=== PATIENT | female | born 1995 | race Caucasian/White ===

== ENCOUNTER 2025-08-23 13:19 | Outpatient (AMB) | payer OTHER, SELFPAY ==
--- OUTSIDE RECORDS SUMMARY | 2025-08-18 06:45 | XMS_ITS ---
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 Performing Lab:Eli Kelly, [facility], Phone - [phone], Director - Dwight Notes/Report: Protein, Total 7.4 6.0-8.5 g/dL Albumin 4.5 4.0-5.0 g/dL Bilirubin, Total <0.2 0.0-1.2 mg/dL Bilirubin, Direct <0.08 0.00-0.40 mg/dL Alkaline Phosphatase 48 41-116 IU/L P lease note reference interval change AST (SGOT) 20 0-40 IU/L ALT (SGPT) 10 0-32 IU/L HCV Antibody RFX to Quant PC [id number] Reviewed date:08/23/2025 12:19:27 PM Interpretation:RNA not DETECTED Performing Lab:Eli Dominguez, Charisse Medley, [address] [place] [address], Phone - [phone], Director - Sharita Notes/Report: HCV Ab Reactive Non Reactive A Hepatitis C Quantitation HCV Not Detected Test Information: The juli ntitative range of this assay is 15 IU/mL to 100 million IU/mL. Interpretation: Positive HCV antibody screen without the presence of HCV RNA is consistent with a resolved past infection or a false positive HCV antibody. Consider repeat testing after one month. CBC With Differential/Platel [id number] Reviewed date:08/19/2025 09:05:43 AM Interpretation:Normal Performing [facility], [address] [place] [address], Phone - [phone], Director - Dwight Notes/Report: WBC 8.8 3.4-10.8 x10E3/uL RBC 4.09 3.77-5.28 x10E6/uL Hemoglobin 12.3 11.1-15.9 g/dL Hematocrit 37.2 34.0-46.6 % MCV 91 79-97 fL MCH 30.1 26.6-33.0 pg MCHC 33.1 31.5-35.7 g/dL RDW 12.9 11.7-15.4 % Platelets 368 150-450 x10E3/uL Neutrophils 58 Not Estab. % Lymphs 34 Not Estab. % Monocytes 6 Not Estab. % Eos 1 Not Estab. % Basos 1 Not Estab. % Neutrophils (Absolute) 5.1 1.4-7.0 x10E3/uL Lymphs (Absolute) 3.0 0.7-3.1 x10E3/uL Monocytes(Absolute) 0.5 0.1-0.9 x10E3/uL Eos (Absolute) 0.1 0.0-0.4 x10E3/uL Baso (Absolute) 0.1 0.0-0.2 x10E3/uL Immature Granulocytes 0 Not Estab. % Immature Grans (Abs) 0.0 0.0-0.1 x10E3/uL Hemoglobin [id number] Reviewed date:08/19/2025 09:05:43 AM Interpretation:5% Normal Performing Lab:[facility], [address] [place] [address], [place], Phone - [phone], Director - Dwight Notes/Report: Hemoglobin A1c 5.0 4.8-5.6 % . Prediabetes: 5.7 - 6.4 Diabetes: >6.4 Glycemic control for adults with diabetes: <7.0 Creatinine-[id number] Reviewed date:08/19/2025 09:05:43 AM Interpretation:Cr 0.7 Normal Performing Lab:[facility], [address], [place], Phone - [phone], Director - Dwight Notes/Report: Creatinine 0.70 0.57-1.00 mg/dL eGFR 119 >59 mL/min/1.73 REASON FOR VISIT Hep C F/U, [facility] labs Medications Medication SIG (Take, Route, Frequency, Duration) Notes Start Date End Date Status Epclusa 400-100 MG Tablet 1 tablet Orally Once a day; Duration: 30 days Request refill prior to running out of supply Insurance would cover 1 month through [facility] pharmacy, needs to have RX transferred, has completed 1 month of medication and needs 2 additional months. Call with questions. 07/15/2025 Active BD Syringe Luer-Wilbert 1 ML Miscellaneous as directed Subcutaneous Once weekly; Duration: 90 days 07/30/2025 Active Alcohol Pads 70 % Pad as directed transdermal cleanse area prior to injections once weekly; Duration: 90 07/30/2025 Active Needle (Disp) 23G X 1-1/2 Miscellaneous as directed IM Once weeky; Duration: 90 days 07/30/2025 Active BD Disp Giltner 19G X 1 Miscellaneous as directed for drawing up medication once weekly; Duration: 90 days 07/30/2025 Active Mirtazapine Active Latuda Active Gabapentin Active cloNIDine Active Testosterone Cypionate 200 MG/ML Solution 0.3 mL Intramuscular 60 mg once weekly; Duration: 28 days 07/30/2025 Active Social History Sex Assigned At : Social History Observation Description Sex Assigned At Female Social History HIV Risk Assessment Social Info Question Answer Notes Additional Questions Is an HIV Risk Assessment being c onducted? Yes Have you been tested for HIV before? Yes Reproductive Life Plan: Social Info Question Answer Notes Reproductive Life Plan: Do you want to h ave children? No, I don't want to have children How sure are you that you will be able to use your control method without any problems? Sure People's plans change. Is it possible you or your partner could ever decide to become ? No Human Trafficking: Social Info Question Answer Notes Human Trafficking Experienced: No PrEP for HIV: Social Info Question Answer Notes PrEP for HIV Is the client intere sted in beginning/continuing PrEP for HIV? No Sexual History: Social Info Question Answer Notes Sexual History: Sexual History Reviewed: Partner s, Practices, Protection/Past STIs, Prevention of Currently sexually active? Yes Sexually active with: Women Your sexual activities include: oral intercourse, vaginal intercourse Reviewed types of EC? No Do you use condoms? Yes Condoms are used: always Date of last unprotected intercourse: 08/14/2025 Number of partners in past 3 months: 1 Number of partners in past year: 1 What is the client's primary method to prevent at the end of their visit? Condoms - Female Does your partner(s) currently have any STIs? No Counseling Provided: Social Info Question Answer Notes Counseling Provided Please indicate the length of time, in minutes, that counseling was provided. 10 Counseling Was Provided By: kezia Drugs/Alcohol: Social Info Question Answer Notes Drug/Alcohol Use Do you or have you used drugs? Yes, i n the past When did you last use? When you used, by which route did you take drugs? Injecting Which drug(s) did you inject? Other (specify in notes) fentanyl Did you share equipment? Yes Have you been tested for Hepatitis C before? Yes Are you in a treatment program? Yes Type of program: Detox Do you or have you used alcohol? No Food Access: Social Info Question Answer Notes Food Access The Client's current access to food is Secure Food Access Relationships: Social Info Question Answer Notes Relationships Has the client exper ienced any of the following: Reproductive Coercion, Harmful Relationships, Sexual Coercion, Exchanged Sex for. . . Emotionally Yes Clt has a therapist Currently: No Physically: Yes Currently: No Sexually: Yes Currently No Been forced or pressured into sexual activities? Yes Currently: No drugs, senior living, safety, other. No Gender Affirming Hormone Car e Social Info Question Answer Notes Gender Affirming Hormone Care: How do yo u describe your gender identity? Select all that apply Man How would you prefer to talk about or refer to your body? (Describe in notes.) medical terminology is ok ay What experience do you have with gender affirming care, if any? Provider prescribed hormones, Social transition clt has been on HRT since the age of 23, has received inconsistent HRT care throughout the years due to substance abuse and being in recovery programs while in transition What are your goals with seeking gender affirming care? Hormonal transition (describe in notes), Gender affirming surgery (describe in notes) gender affirming surgeries and HRT continuation While hormonal treatment is not contraception, it can have an impact on fertility. Is this something you would like to plan for? No Housing Social Info Question Answer Notes Housing The client's current living situation is: other (see notes) currently staying at a group home program Tobacco Use: Social Info Question Answer Notes Tobacco Use: Do you/have you used tobacco? Yes, currently cigarette use How long have you been smoking (years)? 17 How many cigarettes do you smoke per day? 0 - 10 Tobacco Smoking Status Current every day smoker Vital Signs Blood pressure systolic 112 mm Hg 08/18/20 25 Blood pressure diastolic 76 mm Hg 025 Height 5'4 in 08/18/2025 Weight 195 lbs 08/18/2025 BMI 33.47 kg/m2 08/18/2025 Encounters Encounter Location Date Provider Diagnosis [facility] [address] [place], [place] [phone] 08/18/2025 MARIA ANTONIA TEMPLETON Counseling, unspec ified Z71.9 ; Unspecified viral hepatitis C without hepatic coma B19.20 ; Hormone replacement therapy Z79.890 ; Encounter for screening for diabetes mellitus Z13.1 and Other lobsterman (current) drug therapy Z79.899 Assessments Encounter Date Diagnosis (ICD Code) Assessment Notes Treatment Notes Treatment Clinical Notes Section Notes 08/18/2025 Counseling, unspecified (ICD-10 - Z71.9) Need 2 out of 3 Sections from A-C Section A) Problems (only need one from below) One acute or uncomplicated illness/injury Section B) Data (at least one of the following categories in this section) Category 1: (Choose 2 of the following): Order unique tests Section C) Risk Document low risk of morbidity/mortal ity 08/18/2025 Unspecified viral hepatitis C without hepatic coma (ICD-10 - B19.20) Restart medication as soon as it arrives to ensure continuity of therapy. Perform laboratory tests today for Hep C fu. Plan for fu visit once medication is completed in 8-10 wks. Advised to call the pharmacy prior to needing the next refill. Call with issues. Need 2 out of 3 Sections from A-C Section A) Problems (only need one from below) One acute or uncomplicated illness/injury Section B) Data (at least one of the following categories in this section) Category 1: (Choose 2 of the following): Order unique tests Section C) Risk Document low risk of morbidity/mortal ity 08/18/2025 Hormone replacement therapy (ICD-10 - Z79.890) Need 2 out of 3 Sections from A-C Section A) Problems (only need one from below) One acute or uncomplicated illness/injury Section B) Data (at least one of the following categories in this section) Category 1: (Choose 2 of the following): Order unique tests Section C) Risk Document low risk of morbidity/mortal ity 08/18/2025 Encounter for screening for diabetes mellitus (ICD-10 - Z13.1) Need 2 out of 3 Sections from A-C Section A) Problems (only need one from below) One acute or uncomplicated illness/injury Section B) Data (at least one of the following categories in this section) Category 1: (Choose 2 of the following): Order unique tests Section C) Risk Document low risk of morbidity/mortal ity 08/18/2025 Other lobsterman (current) drug therapy (ICD-10 - Z79.899) Need 2 out of 3 Sections from A-C Section A) Problems (only need one from below) One acute or uncomplicated illness/injury Section B) Data (at least one of the following categories in this section) Category 1: (Choose 2 of the following): Order unique tests Section C) Risk Document low risk of morbidity/mortal ity Plan Of Treatment Treatment Notes Assessment Notes Unspecified viral hepatitis C without hepatic coma Restart medication as soon as it arrives to ensure continuity of therapy. Perform laboratory tests today for Hep C fu. Plan for fu visit once medication is completed in 8-10 wks. Advised to call the pharmacy prior to needing the next refill. Call with issues. Next Appt Details Follow Up: 2 Months, Reason: Hep C fu Provider Name:MARIA ANTONIA TEMPLETON, 10:45:00 AM, [address] [place] [address], [phone], Provider Name:MARIA ANTONIA TEMPLETON, 09:30:00 AM, [address] [place] [address], [phone], Provider Name:MARIA ANTONIA TEMPLETON, 09:00:00 AM, [address] [place] [address], [phone], History and Physical Notes * HPI (History of Present Illness) Category Sub-Category Detail Notes Category Not es Visit Narrative Reason for the visit: follow up Current form of control: condoms Presenting Symptoms: none LMP: 07/20 Last date of UPI: 08/14 Other notes for the Clinician: Hasn't be en on their medication since 08/16 Examination Category Sub-Category Detail Notes Category Not es General Examination GENERAL APPEARANCE: pleasant, in n o acute distress PSYCH: alert, oriented Progress Notes * Sigrid CROUCH NDOB: [birth year] (30 yo F)Acc No.[id number]:08/18/2025 Progress Notes Patient: Sigrid Becerril N Provider: Wilfrido TEMPLETON :1995 A ge:30 Y S ex:Female(T) Date:08/18/2025 Address:[address] [place], [place] [id number] Subjective: * Chief Complaints: * H ep C F/UGAH labs * HPI: V isit Narrative: Started on Epclusa treatment last month. Issues with refill with the pharmacy. Ad reported being out of medication since Saturday and expressed frustration regarding delays in obtaining a refill due to insurance issues. He stated that the medication should arrive tomorrow. No other symptoms, concerns, or changes in health status were reported prior to the encounter. Needs [facility] initial labs as well. Reason for the visit: f ollow up. Current form of control: c ondoms. Presenting Symptoms: n one. LMP: 0 07/20. Last date of UPI: 08/14. Other notes for the Clinician: H asn't been on their medication since 08/16. * ROS: G eneral/Constitutional: Comments H as no complaints. 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 L ast menstrual period: 0 07/20. M enarche: A ge of menarche [age] P eriods: e very month, heavy blood loss. S exual activity: c urrently sexually active, with women. U nprotected sex in the last 5 days?: n o. U nprotected sex in the past 10 days?: n o. * OB History: T otal pregnancies: 0 . * Surgical History: Denies Past Surgical History. Surgical History verified. * Hospitalization/Major Diagno stic Procedure: Denies Past Hospitalization. Hospitalization Verified. * Family History: M other: Heart disease, stroke. F amily History: hypertension. F amily History Verified.. * Social History: F ood Access: F ood Access T he Client's current access to food is S [employer] Food Access G jurgen Affirming Hormone Care: G ujrgen Affirming Hormone Care H ow do you describe your gender identity? Select all that apply M an H ow would you prefer to talk about or refer to your body? ( Describe in notes.) medical terminology is okay W hat experience do you have with gender affirming care, if any? P elver prescribed hormones, Social transition clt has been on HRT since the age of 23, has received inconsistent HRT care throughout the years due to substance abuse and being in recovery programs while in transition W hat are your goals with seeking gender affirming care? H ormonal transition (describe in notes), Gender affirming surgery (describe in notes) gender affirming surgeries and HRT continuation W hile hormonal treatment is not contraception, it can have an impact on fertility. Is this something you would like to plan for? N o H ousing: H ousing T he client's current living situation is:?other (see notes) currently staying at a group home program R eproductive Life Plan: R eproductive Life Plan D o you want to have children? N o, I don't want to have children H ow sure are you that you will be able to use your control method without any problems? S ure P eople's plans change. Is it possible you or your partner could ever decide to become ? N o S exual History: S exual History S exual History Reviewed: P artners, Practices, Protection/Past STIs, Prevention of C urrently sexually active? Y es S exually active with: W ofelia Y our sexual activities include: o ral intercourse, vaginal intercourse R eviewed types of EC? N o D o you use condoms? Y es C ondoms are used: a lways D ate of last unprotected intercourse: 0 08/14/2025 N umber of partners in past 3 months: 1 N umber of partners in past year: 1 W hat is the client's primary method to prevent at the end of their visit? C ondoms - Female D oes your partner(s) currently have any STIs??No H IV Risk Assessment: A dditional Questions I s an HIV Risk Assessment being conducted??Yes H ave you been tested for HIV before? Y es P rEP for HIV: P rEP for HIV I s the client interested in beginning/continuing PrEP for HIV? N o R elationships: R elationships H as the client experienced any of the following: R eproductive Coercion, Harmful Relationships, Sexual Coercion, Exchanged Sex for. . . E motionally Y es Clt has a therapist C urrently: N o P hysically: Y es C urrently: N o S exually: Y es C urrently N o B een forced or pressured into sexual activities? Y es C urrently: N o d rugs, senior living, safety, other. N o H uman Trafficking: H uman Trafficking E xperienced: N o T obacco Use: T obacco Use D o you/have you used tobacco? Y es, currently cigarette use H ow long have you been smoking (years)? 1 7 H ow many cigarettes do you smoke per day??0 - 10 T obacco Smoking Status C urrent every day smoker D rugs/Alcohol: D rug/Alcohol Use D o you or have you used drugs? Y es, in the past W hen did you last use? 0 -2024 W hen you used, by which route did you take drugs? I njecting W hich drug(s) did you inject? O ther (specify in notes) fentanyl D id you share equipment? Y es H ave you been tested for Hepatitis C before??Yes A re you in a treatment program? Y es T ype of program: D etox D o you or have you used alcohol? N o C monae Provided: C ounseling Provided P lease indicate the length of time, in minutes, that counseling was provided. 1 0 C ounseling Was Provided By: ethan Conde ocial History Verified. * Medications: T akingLatuda Mirtazapine cloNIDine Gabapentin Testosterone Cypionate 200 MG/ML Solution 0.3 mL Intramuscular 60 mg once weekly BD Disp Giltner 19G X 1 Miscellaneous as directed for drawing up medication once weekly BD Syringe Luer- Wilbert 1 ML Miscellaneous as directed Subcutaneous Once weekly Needle (Disp) 23G X 1-1/2 Miscellaneous as directed IM Once weeky Alcohol Pads 70 % Pad as directed transdermal cleanse area prior to injections once weekly Epclusa 400-100 MG Tablet 1 tablet Orally Once a day Request refill prior to running out of supply, Notes to Pharmacist: Insurance would cover 1 month through [facility] pharmacy, needs to have RX transferred, has completed 1 month of medication and needs 2 additional months. Call with questions.Medication List reviewed and reconciled with the patientTaking Latuda Taking Mirtazapine Taking cloNIDine Taking Gabapentin Taking Testosterone Cypionate 200 MG/ML Solution 0.3 mL Intramuscular 60 mg once weekly Taking BD Disp Giltner 19G X 1 Miscellaneous as directed for drawing up medication once weekly Taking BD Syringe Luer-Wilbert 1 ML Miscellaneous as directed Subcutaneous Once weekly Taking Needle (Disp) 23G X 1-1/2 Miscellaneous as directed IM Once weeky Taking Alcohol Pads 70 % Pad as directed transdermal cleanse area prior to injections once weekly Taking Epclusa 400-100 MG Tablet 1 tablet Orally Once a day Request refill prior to running out of supply, Notes to Pharmacist: Insurance would cover 1 month through [facility] pharmacy, needs to have RX transferred, has completed 1 month of medication and needs 2 additional months. Call with questions.Medication List reviewed and reconciled with the patient * Allergies: M orphine: hives - AllergyPROzac: Other: homocidal, aggressive - Side EffectsAmoxicillin: hives - AllergyPenicillin: hives - AllergyyesAllergies Verified. Objective: * Vitals: B P:112/76mm Hg, Ht: 5'4 , Wt:195lbs, BMI:33.47Index, Ht-cm: 162.56 cm, Wt-k.45 kg. * Examination: G eneral Examination: GENERAL APPEARANCE: p leasant, in no acute distress. PSYCH: a lert, oriented. Assessment: * Assessment: 1. U nspecified viral hepatitis C without hepatic coma - B19.20 (Primary) 2 .?Counseling, unspecified - Z71.9 3 . H ormone replacement therapy - Z79.890? 4. E ncounter for screening for diabetes mellitus - Z13.1 5 . Other lobsterman (current) drug therapy - Z79.899 Need 2 out of 3 Sections fro m A-C Section A) Problems (only need one from below) One acute or uncomplicated illness/injury Section B) Data (at least one of the following categories in this section) Category 1: (Choose 2 of the following): Order unique tests Section C) Risk Document low risk of morbidity/mortality Plan: * Treatment: Value Reference Range C reatinine 0.70 0.57-1.00 - mg/dL * e GFR 119 >59 - mL/min/1.73 * This lab was reviewed by BEAR GOMEZ on 08/19/2025 at 09:05 AM EDT ?LAB: Hemoglobin [id number] (Collection Date & Time - 08/18/2025 12:08 PM)* Value Reference Range H emoglobin A1c 5.0 4.8-5.6 - % * This lab was reviewed by BEAR GOMEZ on 08/19/2025 at 09:05 AM EDT ?LAB: CBC With Differential/Platelet-[id number] (Collection Date & Time - 08/18/2025 12:08 PM)* Value Reference Range W BC 8.8 3.4-10.8 - x10E3/uL * R BC 4.09 3.77-5.28 - x10E6/uL * H emoglobin 12.3 11.1-15.9 - g/dL * H ematocrit 37.2 34.0-46.6 - % * M CV 91 79-97 - fL * M CH 30.1 26.6-33.0 - pg * M CHC 33.1 31.5-35.7 - g/dL * R DW 12.9 11.7-15.4 - % * P latelets 368 150-450 - x10E3/uL * N eutrophils 58 Not Estab. - % * L ymphs 34 Not Estab. - % * M onocytes 6 Not Estab. - % * E os 1 Not Estab. - % * B asos 1 Not Estab. - % * N eutrophils (Absolute) 5.1 1.4-7.0 - x10E3/uL * L ymphs (Absolute) 3.0 0.7-3.1 - x10E3/uL * M onocytes(Absolute) 0.5 0.1-0.9 - x10E3/uL * E os (Absolute) 0.1 0.0-0.4 - x10E3/uL * B aso (Absolute) 0.1 0.0-0.2 - x10E3/uL * I mmature Granulocytes 0 Not Estab. - % * I mmature Grans (Abs) 0.0 0.0-0.1 - x10E3/uL * This lab was reviewed by BEAR GOMEZ on 08/19/2025 at 09:05 AM EDT ?LAB: HCV Antibody RFX to Quant PCR-[id number] (Collection Date & Time - 08/18/2025 12:08 PM)* Value Reference Range H CV Ab Reactive A Non Reactive - * H epatitis C Quantitation HCV Not Detected - IU/mL * MARIA ANTONIA TEMPLETON 08/23/2025 12:17: 31 PM EDT > Farhat, I'm very pleased to say that your Hep C viral load is undetectable! Keep up with your Hep C treatment until it is fully completed as we don't want the viral load to come back. Call with questionsThis lab was reviewed by MARIA ANTONIA TEMPLETON on 08/23/2025 at 12:19 PM EDT ?LAB: Hepatic Function Panel ([id number] (Collection Date & Time - 08/18/2025 12:08 PM)* Value Reference Range P rotein, Total 7.4 6.0-8.5 - g/dL * A lbumin 4.5 4.0-5.0 - g/dL * B ilirubin, Total <0.2 0.0-1.2 - mg/dL * B ilirubin, Direct <0.08 0.00-0.40 - mg/dL * A lkaline Phosphatase 48 41-116 - IU/L * A ST (SGOT) 20 0-40 - IU/L * A LT (SGPT) 10 0-32 - IU/L * MARIA ANTONIA TEMPLETON 08/23/2025 12:45: 52 PM EDT > your liver function testing has improved into the normal range from baseline since starting Hep C treatment! Keep up with the treatment for the next 8 weeks!This lab was reviewed by MARIA ANTONIA TEMPLETON on 08/23/2025 at 12:46 PM EDT Notes: Restart medication as soon as it arrives to ensure continuity of therapy. Perform laboratorytests today for Hep C fu. Plan for fu visit once medication is completed in 8-10 wks. Advised to call the pharmacy prior to needing the next refill. Call with issues.?? * Follow Up: 2 Months (Reason: Hep C fu) Billing Information: * Visit Code: [id number] Existing - Low Complexity (IN USE). * Procedure Codes: * Sign off status: Completed true * Provider: Wilfrido TEMPLETON Date: 08/18/2025 Generated for John ledbetter/Sherley/Berenice on: 08/23/2025 02:48 PM EDT
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
[2025-08-23 13:32] VITALS: BP 108/53; PULSE 84; RESP 16; TEMP 36.6; O2SAT 98; BMI 32.9
--- OUTSIDE RECORDS SUMMARY | 2025-08-23 14:49 | XMS_ITS | Patient Health Record ---
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 Role Phone MARIA ANTONIA TEMPLETON Unavailable [phone] Sameera Granados Unavailable [phone] Allergies Allergen (clinical drug ingredient) Drug/Non Drug Allergy documented on EMR Reaction Allergy Type Onset Date Status fluoxetine PROzac Other: homocidal , aggressive Drug Allergy Active amoxicillin Amoxicillin hives Drug Allergy Act deven morphine Morphine hives Drug Allergy Active Penicillin hives Drug Allergy Active Results Component Value Reference Range Flag Notes Creatinine-[id number] Reviewed date:06/21/2025 11:26:34 AM Interpretation:Cr 0.53 low Performing Lab:[facility], Phone - [phone], Director - MDJodry Notes/Report: Creatinine 0.53 0.57-1.00 mg/dL L eGFR 128 >59 mL/min/1.73 hCG,Beta Subunit, Qnt-[id number] Reviewed date:06/17/2025 12:18:11 PM Interpretation:Negative Performing Lab:[facility], [address] [facility], [place], Phone - [phone], Director - MDJodry Notes/Report: hCG,Beta Subunit,Qnt,Serum <1 Female (Non-) 0 - 5 (Postmenopausal) 0 - 8 . Female () Weeks of Gestation 3 6 - 71 4 10 - 750 5 127 - 0741 6 845 - 86866 7 6172 -036536 8 61366 -391278 9 69220 -761974 10 26547 -434612 12 82437 -479153 14 32310 - 93531 15 68352 - 03108 16 1363 - 00920 17 3448 - 50519 18 4364 - 19606 Dominick ECLIA methodology CBC With Differential/Platel et-[id number] Reviewed date:06/21/2025 11:26:23 AM Interpretation:Normal Performing Lab:[address], Phone - [phone], [facility] - [facility] Notes/Report: WBC 7.3 3.4-10.8 x10E3/uL RBC 4.30 3.77-5.28 x10E6/uL Hemoglobin 12.5 11.1-15.9 g/dL Hematocrit 38.9 34.0-46.6 % MCV 91 79-97 fL MCH 29.1 26.6-33.0 pg MCHC 32.1 31.5-35.7 g/dL RDW 12.9 11.7-15.4 % Platelets 313 150-450 x10E3/uL Neutrophils 50 Not Estab. % Lymphs 40 Not Estab. % Monocytes 7 Not Estab. % Eos 2 Not Estab. % Basos 1 Not Estab. % Neutrophils (Absolute) 3.7 1.4-7.0 x10E3/uL Lymphs (Absolute) 2.9 0.7-3.1 x10E3/uL Monocytes(Absolute) 0.5 0.1-0.9 x10E3/uL Eos (Absolute) 0.2 0.0-0.4 x10E3/uL Baso (Absolute) 0.1 0.0-0.2 x10E3/uL Immature Granulocytes 0 Not Estab. % Immature Grans (Abs) 0.0 0.0-0.1 x10E3/uL HBsAg Screen-[id number] Reviewed date:06/21/2025 11:13:27 AM Interpretation:Negative Performing Lab:[address], Phone - [phone], Director - [facility] Notes/Report: HBsAg Screen Negative Negative Hepatitis B Surf Ab Quant-00 6530 Reviewed date:06/21/2025 11:26:17 AM Interpretation:Positive Performing Lab:[address], Phone - [phone], Director - [facility] Notes/Report: Hepatitis B Surf Ab Quant 6267.0 Immunity>10 mIU/mL Results confirmed on dilution. Status of Immunity Anti-HBs Level Inconsistent with Immunity 0.0 - 10.0 Consistent with Immunity >10.0 Hep B Core Ab, Tot-[id number] Reviewed date:06/21/2025 11:21:48 AM Interpretation:Positive Performing Lab:[facility], [address] [place] [address], Phone - [phone], Director - Leslye Notes/Report: Hep B Core Ab, Tot Positive Negative A Hep A Ab, Total-[id number] Reviewed date:06/21/2025 11:25:27 AM Interpretation:Positive Performing Lab:[facility], [address] [place] [address], Phone - [phone], Director - [facility] Notes/Report: Hep A Ab, Total Positive Negative A Comment: The HAV total antibody assay detects both IgG and IgM but does not differentiate between them. A negative result suggests susceptibility to infection. A positive result could be due to vaccination, previously resolved infection or active infection. Testing for HAV IgM should be performed if active HAV infection is suspected. [facility] offers profiles that will automatically reflex positive HAV total antibody results to IgM (e.g., panel #[id number] HAV Antibody w/ Rfx). PT and PTT-[id number] Reviewed date:06/21/2025 11:26:01 AM Interpretation:see details Performing Lab:[facility], [address] [place] [address], Phone - [phone], Director - OKDiandra Notes/Report: INR 1.0 0.9-1.2 Reference interval is for non-anticoagulated patients. . Suggested INR therapeutic range for Vitamin K antagonist therapy: Standard Dose (moderate intensity therapeutic range): 2.0 - 3.0 Higher intensity therapeutic range 2.5 - 3.5 Prothrombin Time 10.5 9.1-12.0 sec aPTT 35 24-33 sec H This test has not been validated for monitoring unfractionated heparin therapy. aPTT-based therapeutic ranges for unfractionated heparin therapy have not been established. For general guidelines on Heparin monitoring, refer to the [facility] Directory of Services. T pallidum Screening Colony -[id number] Reviewed date:06/21/2025 11:25:48 AM Interpretation:Negative Performing Lab:[facility] [address], [address], [place], Phone - [phone], Director - [facility] Notes/Report: T pallidum Antibodies Non Reactive Non Reactive HIV Ab/p24 Ag with Reflex-08 3935 Reviewed date:06/21/2025 11:25:38 AM Interpretation:Negative Performing Lab:[facility] [place], [address], [address], [place], Phone - [phone], Director - [facility] Notes/Report: HIV Ab/p24 Ag Screen Non Reactive Non Reactive HIV-1/HIV-2 antibodies and HIV-1 p24 antigen were NOT detected. There is no laboratory evidence of HIV infection. HIV Negative HCV Antibody Colony(PCR/Gen o)-[id number] Reviewed date:06/30/2025 09:13:44 AM Interpretation:Positive, see details Performing Lab:[facility] [place], [address]ley, [address], [place], Phone - [phone], Director - [facility] Notes/Report: Test(s) 962030-Cghtzyhwn C Genotype was developed and its performance characteristics determined by [facility]. It has not been cleared or approved by the Food and Drug Administration. Test(s) 963731-Prdoopnzf C Genotype was developed and its performance characteristics determined by [facility]. It has not been cleared or approved by the Food and Drug Administration. Test(s) 981274-Ytcdwzrrf C Genotype was developed and its performance characteristics determined by [facility]. It has not been cleared or approved by the Food and Drug Administration. HCV Ab Reactive Non Reactive A Hepatitis C Quantitation [id number] HCV log10 5.723 Test Information: The juli ntitative range of this assay is 15 IU/mL to 100 million IU/mL. Interpretation: Positive HCV antibody screen with the presence of HCV RNA is consistent with active infection. HCV Genotype To be perfor med on this specimen. Hepatitis C Genotype 3 Hepatic Function Panel (7)-[id number] Reviewed date:06/21/2025 10:54:05 AM Interpretation:AST/ALT elevated Performing Lab:[facility], [address] [place] [address], [place], Phone - [phone], Director - OKDerik Notes/Report: Protein, Total 7.5 6.0-8.5 g/dL Albumin 4.5 4.0-5.0 g/dL Bilirubin, Total <0.2 0.0-1.2 mg/dL Bilirubin, Direct <0.08 0.00-0.40 mg/dL Alkaline Phosphatase 54 44-121 IU/L AST (SGOT) 80 0-40 IU/L H ALT (SGPT) 105 0-32 IU/L H HCV FibroSure-[id number] Reviewed date:06/21/2025 10:52:27 AM Interpretation:No Fibrosis Performing Lab:[facility] [place], [facility] [address], [place], Phone - [phone], Director - Kasey Notes/Report: Fibrosis Score 0.06 0.00-0.21 Fibrosis Stage F0 - No fi brosis Necroinflammat Activity Score 0.58 0.00-0.17 H Necroinflammat Activity Grade A2-Moderate activity Methodology: The analytes tested are performed by FibroSure-Specific methods. Not intended for use with other diagnostic considerations. Alpha 2-Macroglobulins, Qn 304 110-276 mg/dL H Haptoglobin 154 33-278 mg/dL Apolipoprotein A-1 156 116-209 mg/dL Bilirubin, Total 0.1 0.0-1.2 mg/dL GGT 28 0-60 IU/L ALT (SGPT) P5P 127 0-40 IU/L H Interpretations: Quantitative results of 6 biochemical tests are analyzed using a computational algorithm to provide a quantitative surrogate marker (0.0-1.0) for liver fibrosis (METAVIR F0-F4) and for necroinflammatory activity (METAVIR A0-A3). Fibrosis Scoring: <=0.21 = Stage F0 - No fibrosis 0.21 - 0.27 = Stage F0 - F1 0.27 - 0.31 = Stage F1 - Portal fibrosis 0.31 - 0.48 = Stage F1 - F2 0.48 - 0.58 = Stage F2 - Bridging fibrosis with few septa 0.58 - 0.72 = Stage F3 - Bridging fibrosis with many septa 0.72 - 0.74 = Stage F3 - F4 >0.74 = Stage F4 - Cirrhosis Necroinflamm Activity Scoring: <0.17 = Grade A0 - No Activity 0.17 - 0.29 = Grade A0 - A1 0.29 - 0.36 = Grade A1 - Minimal activity 0.36 - 0.52 = Grade A1 - A2 0.52 - 0.60 = Grade A2 - Moderate activity 0.60 - 0.62 = Grade A2 - A3 >0.62 = Grade A3 - Severe activity Limitations: The negative predictive value of a Fibrotest score <0.31 (absence of clinically significant fibrosis) was 85% when compared to liver biopsy in 1,270 HCV infected patients with a 38% prevalence of significant liver fibrosis (F2, 3 or 4). The positive predictive value of a Fibro- test score >0.48 (F2, 3, 4) was 61% in that same patient cohort. HCV FibroSURE is not recommended in patients with Gilbert Disease, acute hemolysis (e.g. HCV ribavirin therapy mediated hemolysis) acute hepa- titis of the liver, extra-hepatic cholestasis, transplant patients, and/or renal insufficiency patients. Any of these clinical situations may lead to inaccurate quantitative predictions of fibrosis and necroinflammatory activity in the liver. Comment: This test was developed and its performance characteristics determined by [facility]. It has not been cleared or approved by the Food and Drug Administration. The FDA has determined that such clearance or approval is not necessary. . For questions regarding this report please contact customer service at . Creatinine-[id number] Reviewed date:08/19/2025 09:05:43 AM Interpretation:Cr 0.7 Normal Performing Lab:[facility], Phone - [phone], Director - Dwight Notes/Report: Creatinine 0.70 0.57-1.00 mg/dL eGFR 119 >59 mL/min/1.73 Hemoglobin Q7n-[id number] Reviewed date:08/19/2025 09:05:43 AM Interpretation:5% Normal Performing Lab:[facility], Phone - [phone], Director - Dwight Notes/Report: Hemoglobin A1c 5.0 4.8-5.6 % . Prediabetes: 5.7 - 6.4 Diabetes: >6.4 Glycemic control for adults with diabetes: <7.0 CBC With Differential/Platel et-[id number] Reviewed date:08/19/2025 09:05:43 AM Interpretation:Normal Performing Lab:[facility] [place], [address] [place] [address], Phone - [phone], Director - Dwight Notes/Report: WBC 8.8 3.4-10.8 [...] % Immature Grans (Abs) 0.0 0.0-0.1 x10E3/uL HCV Antibody RFX to Quant PC R-[id number] Reviewed date:08/23/2025 12:19:27 PM Interpretation:RNA not DETECTED Performing Lab:Eli Dominguez, [address] [place] [address] Jasmyne, [address] [place] [address], Phone - [phone], Director - [facility] Notes/Report: HCV Ab Reactive Non Reactive A Hepatitis C Quantitation HCV Not Detected Test Information: The juli ntitative range of this assay is 15 IU/mL to 100 million IU/mL. Interpretation: Positive HCV antibody screen without the presence of HCV RNA is consistent with a resolved past infection or a false positive HCV antibody. Consider repeat testing after one month. Hepatic Function Panel (7)-[id number] Reviewed date:08/23/2025 12:46:57 PM Interpretation:Improved! Performing Lab:Eli Kelly, [address] [facility], [place], Phone - [phone], Director - OKDerik Notes/Report: Protein, Total 7.4 6.0-8.5 g/dL Albumin 4.5 4.0-5.0 g/dL Bilirubin, Total <0.2 0.0-1.2 mg/dL Bilirubin, Direct <0.08 0.00-0.40 mg/dL Alkaline Phosphatase 48 41-116 IU/L P lease note reference interval change AST (SGOT) 20 0-40 IU/L ALT (SGPT) 10 0-32 IU/L HBV DNA RealTime Deluna-[id number] Reviewed date:07/14/2025 08:48:36 AM Interpretation:Not Detected Performing Lab:[facility], [address] [facility], [facility], Phone - [phone], Director - Abby Notes/Report: Hepatitis B Quantitation HBV DNA not detected HBV log10 TNP Unable to calculate result since non-numeric result obtained for component test. Test Information: The quantifiable range of this assay is 10 to 1,000,000,000 IU/mL and the limit of detection of the assay is 10 IU/mL. Reason For Referral No Information Medications Medication SIG (Take, Route, Frequency, Duration) Notes Start Date End Date Status Epclusa 400-100 MG Tablet 1 tablet Orally Once a day; Duration: 30 days Request refill prior to running out of supply Insurance would cover 1 month through [place] [facility], needs to have RX transferred, has completed 1 month of medication and needs 2 additional months. Call with questions. 07/15/2025 Active Mirtazapine Active Latuda Active BD Syringe Luer-Wilbert 1 ML Miscellaneous as directed Subcutaneous Once weekly; Duration: 90 days 07/30/2025 Active Alcohol Pads 70 % Pad as directed transdermal cleanse area prior to injections once weekly; Duration: 90 07/30/2025 Active Needle (Disp) 23G X 1-1/2 Miscellaneous as directed IM Once weeky; Duration: 90 days 07/30/2025 Active Gabapentin Active cloNIDine Active BD Disp Barton 19G X 1 Miscellaneous as directed for drawing up medication once weekly; Duration: 90 days 07/30/2025 Active Testosterone Cypionate 200 MG/ML Solution 0.3 [...] into sexual activities? Yes Currently: No drugs, mcc, safety, other. No Gender Affirming Hormone Car [...] other (see notes) currently staying [facility] [place] [facility] Tobacco Use: Social Info Question Answer Notes Tobacco Use: Do you/have you used tobacco? Yes, currently cigarette use How long have you been smoking (years)? 17 How many cigarettes do you smoke per day? 0 - 10 Tobacco Smoking Status Current every day smoker Section Notes: social hx not reviewed today Problems Problem Type SNOMED Code ICD Code Onset Dates Problem Status W/U Status Risk Notes Problem Viral hepatitis type C (18668241) Unspecified viral hepatitis C without hepatic coma (B19.20) Active confirmed Vital Signs Blood pressure diastolic 76 mm Hg 08/18/2025 Height 5'4 in 08/18/2025 Blood pressure systolic 112 mm Hg 08/18/2025 Weight 195 lbs 08/18/2025 BMI 33.47 kg/m2 08/18/2025 Encounters Encounter Location Date [facility] [phone] 06/16/2025 MARIA ANTONIA TEMPLETON Counseling, unspecif ied Z71.9 ; Unspecified viral hepatitis C without hepatic coma B19.20 ; Screening for other viral diseases Z11.59 ; Other usp (current) drug therapy Z79.899 ; Encounter for screening for human immunodeficiency virus [HIV] Z11.4 and Encounter for test, result unknown Z32.00 [facility] [address] [place] [phone] 07/15/2025 MARIA ANTONIA TEMPLETON Unspecified viral hepatitis C without hepatic coma B19.[address] [facility] [phone] 07/30/2025 MARIA ANTONIA TEMPLETON 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 and Hormone replacement therapy Z79.890 [facility] [id number] 08/18/2025 MARIA ANTONIA TEMPLEOTN Counseling, unspecif ied Z71.9 ; Unspecified viral hepatitis C without hepatic coma B19.20 ; Hormone replacement therapy Z79.890 ; Encounter for screening for diabetes mellitus Z13.1 and 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.[address] [id number] 06/21/2025 MARIA ANTONIA TEMPLETON [address] [id number] 07/30/2025 MARIA ANTONIA TEMPLETON [address] [id number] 08/16/2025 MARIA ANTONIAESTER TEMPLETON [address] [id number] 08/16/2025 Sameeracristobal Granados Unspecified viral hepatitis C without hepatic coma B19.20 Assessments Encounter Date Diagnosis (ICD Code) Assessment Notes Treatment Notes Treatment Clinical Notes Section Notes 06/16/2025 Counseling, unspecified (ICD-10 - Z71.9) Need 2 out of 3 Sections from A-C Section A) Problems (only need one from below) One acute or uncomplicated illness/injury Section B) Data (at least one of the following categories in this section) Category 1: (Choose 2 of the following): Order unique tests Section C) Risk Document low risk of morbidity/morta lity 07/15/2025 Unspecified viral hepatitis C without hepatic coma (ICD-10 - B19.20) Reviewed treatment options. Clt did prefer Mavyret over Epclusa however with clt's new Rx Latuda there is a weak interaction with Mavyret. Recommend Epclusa. Clt in agreement. Reviewed SE profile, prior authorization process and the need to request a refill every month to complete the full 12 week regimen. For fu visit and labs in 4-5 weeks. 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) Client provided with a copy of the TESTOSTERONE RISK AND BENEFITS HANDOUT and was reviewed with clinician with the below information and understands: Reviewed possible changes that will be PERMANENT and will not go away, even if client stops testosterone treatment: -Vocal pitch becomes deeper -Increased growth, thickening and darkening of body hair -Facial hair growth -Possible hair loss at the temples and crown of the head (male pattern baldness) with possible complete baldness -Increase in the size of clitoris/phallus Reviewed possible changes that are NOT PERMANENT and will likely reverse if client stops testosterone treatment: -Periods will stop within 3-6 months of starting testosterone -Possible weight gain / fat redistribution in the abdomen and midsection -Increased muscle mass and upper body strength -Possible feeling of more physical energy -Skin changes, including acne that may be severe -Increased sex drive -Changes in mood or thinking, including a decreased emotional reaction and increased feelings of anger or aggression Reviewed risks and possible side effects, including: possible loss of fertility; potential of if having penetrative sex with sperm producing partner, and potential harm or to developing fetus while taking testosterone; pelvic pain; vulvar/vaginal wall dryness and fragility, which may lead to increased STI risk with unprotected penetrative sex; unknown effects on the risk of breast, uterine, and ovarian cancer; possible increased risk of cardiovascular disease; possible changes in the body that may increase the risk of developing diabetes; increased appetite, increased weight gain from both muscle and fat; increased risk of sleep apnea; possible abnormalities in blood tests for the liver; possible worsening of liver damage; increase in hemoglobin and hematocrit which may lead to blood clots, strokes, and heart attacks; increased sweating; weakening of tendons and increased risk of injury; possible worsening or triggering headaches or migraines; possible increase in frustration, irritability, or anger; possible increased aggression and worsened impulse control; possible worsening of bipolar disorder, schizophrenia, and psychotic disorders or other unstable moods. Client expresses understanding that: smoking cigarettes/nicot ine use may increase some of the risks of taking testosterone therapy; taking testosterone doses that are higher than recommended will increase the risks of testosterone treatment and may interfere with masculinization; client may choose to stop hormone therapy at any time and for any reason; clinician may decrease the dose of testosterone or stop prescribing testosterone because of medical reasons and/or safety concerns, and will discuss the reasons for all treatment decisions with client; hormone therapy is not the only way a person may appear more masculine and/or live as male, and client has thought through other options with providers if interested. Client agrees to: take testosterone at the dosage and in the form that clinician prescribes; inform clinician if taking or start taking any other prescription drugs, dietary supplements, herbal or homeopathic drugs, or street/recreatio nal drugs or alcohol so discussion on possible interactions can be had; inform clinician of new physical symptoms of any medical conditions that may develop before or while taking testosterone; inform clinician of any symptoms if client suspects any bad side effects from testosterone; keep regular follow up appointments and have regular monitoring blood testing done. Client to take home the TESTOSTERONE RISK AND BENEFIT HANDOUT with all of the above information, and will initiate treatment based on agreed upon start and follow up plan with provider during today's visit Need 2 out of 3 Sections from A-C Section A) Problems (only need one from below) Section B) Data (need at least one of the following categories in this section) Category 1: (Choose three of the following): Order Unique tests Section C) Prescription drug management (this counts for the whole section) 07/30/2025 Hormone replacement therapy (ICD-10 - Z79.890) Reviewed Clt's medical history, family history and goals. Testosterone benefits/risks handout reviewed, and questions answered. Clt given a copy of handout to take home. Clt meets the [facility] requirements for hormone therapy: >6 months of persistent gender dysphoria/incong ruence (see scanned in check list) Capacity to make a fully informed decision and to consent for treatment At least 18 years of age Significant medical or mental health concerns reasonably well controlled Clt feeling ready to go forward with [facility] start. Testosterone regimens reviewed. Clt most interested in restart on injectable form. Clt aware of the possible prior authorization process. Plan: Labs (hgb/hct, hgbA1C) deferred until next Hep C tx fu in 2.5 weeks, hgb/hct levels check in May and WNL Rx sent, clt wants to return to IM injections, not interested in SQ for now. Feels confident in injections and not needing teaching session Plan to start at 0.3mL and titrate up to meet goals, clt previously at 0.5ml/100mg dosing in the past per records received. Will be monitoring LFT's given abn at baseline and on Hep C treatment Follow up labs in 6 wks and visit in 8 weeks Need 2 out of 3 Sections from A-C Section A) Problems (only need one from below) Section B) Data (need at least one of the following categories in this section) Category 1: (Choose three of the following): Order Unique tests Section C) Prescription drug management (this counts for the whole section) 08/16/2025 Unspecified viral hepatitis C without hepatic coma (ICD-10 - B19.20) 08/18/2025 Unspecified viral hepatitis C without hepatic [...] Section C) Risk Document low risk of morbidity/morta lity 06/16/2025 Unspecified viral hepatitis C without hepatic coma (ICD-10 - B19.20) We reviewed etiology, transmission, and treatment of hepatitis C. Risks, benefits, and importance of adhering to treatment discussed. We reviewed health optimization during treatment. Treatment regimen to be finalized after review of labs, current medications, and social determinents of health. Appropriate referrals for treatment with GI will be made if clt has active HBV infection or if cirrhosis is present. Follow up in 4 weeks for Hepatic function panel, CBC with diff, Cr, HCV antibody with reflex, and 12 weeks after completing treatment for HCV RNA. Need 2 out of 3 Sections from A-C Section A) Problems (only need one from below) One acute or uncomplicated illness/injury Section B) Data (at least one of the following categories in this section) Category 1: (Choose 2 of the following): Order unique tests Section C) Risk Document low risk of morbidity/morta lity 08/18/2025 Counseling, unspecified (ICD-10 - Z71.9) Need 2 out of 3 Sections from A-C Section A) Problems (only need one from below) One acute or uncomplicated illness/injury Section B) Data (at least one of the following categories in this section) Category 1: (Choose 2 of the following): Order unique tests Section C) Risk Document low risk of morbidity/morta lity 08/18/2025 Hormone replacement therapy (ICD-10 - Z79.890) Need 2 out of 3 Sections from A-C Section A) Problems (only need one from below) One acute or uncomplicated illness/injury Section B) Data (at least one of the following categories in this section) Category 1: (Choose 2 of the following): Order unique tests Section C) Risk Document low risk of morbidity/morta lity 06/16/2025 Screening for other viral diseases (ICD-10 - Z11.59) Need 2 out of 3 Sections from A-C Section A) Problems (only need one from below) One acute or uncomplicated illness/injury Section B) Data (at least one of the following categories in this section) Category 1: (Choose 2 of the following): Order unique tests Section C) Risk Document low risk of morbidity/morta lity 06/16/2025 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 (ICD-10 - Z79.899) Need 2 out of 3 Sections from A-C Section A) Problems (only need one from below) One acute or uncomplicated illness/injury Section B) Data (at least one of the following categories in this section) Category 1: (Choose 2 of the following): Order unique tests Section C) Risk Document low risk of morbidity/morta lity 08/18/2025 Encounter for screening for diabetes mellitus (ICD-10 - Z13.1) Need 2 out of 3 Sections from A-C Section A) Problems (only need one from below) One acute or uncomplicated illness/injury Section B) Data (at least one of the following categories in this section) Category 1: (Choose 2 of the following): Order unique tests Section C) Risk Document low risk of morbidity/morta lity 08/18/2025 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 (ICD-10 - Z79.899) Need 2 out of 3 Sections from A-C Section A) Problems (only need one from below) One acute or uncomplicated illness/injury Section B) Data (at least one of the following categories in this section) Category 1: (Choose 2 of the following): Order unique tests Section C) Risk Document low risk of morbidity/morta lity 06/16/2025 Encounter for screening for human immunodeficiency virus [HIV] (ICD-10 - Z11.4) Need 2 out of 3 Sections from A-C Section A) Problems (only need one from below) One acute or uncomplicated illness/injury Section B) Data (at least one of the following categories in this section) Category 1: (Choose 2 of the following): Order unique tests Section C) Risk Document low risk of morbidity/morta lity 06/16/2025 Encounter for test, result unknown (ICD-10 - Z32.00) Need 2 out of 3 Sections from A-C Section A) Problems (only need one from below) One acute or uncomplicated illness/injury Section B) Data (at least one of the following categories in this section) Category 1: (Choose 2 of the following): Order unique tests Section C) Risk Document low risk of morbidity/morta lity 06/16/2025 Other Will schedule for [facility] start visit and fill out medical release for HRT records from [facility] Need 2 out of 3 Sections from A-C Section A) Problems (only need one from below) One acute or uncomplicated illness/injury Section B) Data (at least one of the following categories in this section) Category 1: (Choose 2 of the following): Order unique tests Section C) Risk Document low risk of morbidity/morta lity Plan Of Treatment Future Test Test Name Order Date AST (SGOT)-[id number] 09/10/2025 ALT (SGPT)-[id number] 09/10/2025 Hgb+Hct-[id number] 09/10/2025 Testosterone,All genders-[id number] 09/10/20 Next Appt Details Provider Name:MARIA ANTONIA TEMPLETON, 10:45:00 AM, [address] [place] [address], [phone], Provider Name:MARIA ANTONIA TEMPLETON, 09:30:00 AM, [address] [place] [address], [phone], Provider Name:MARIA ANTONIA TEMPLETON, 09:00:00 AM, [address] [facility], [place], [place], [phone], Insurance Providers Payer Name Payer Address Payer Phone Subscriber Number Group Number Insured Name Patient Relationship to Insured Coverage Start Date Coverage End Date [place] ATT CLAIMS [address] [place] [address] [id number] Sigrid Tilley Self - patient is the insured Medical (General) History Medical History History ICD Code Asthma, exercise induced Anxiety Sleep terrors, insomnia HCV, dx in 2023, tx started 06/2025 PTSD, panic attacks ADHD Smoking 1/2 PPD, plans to quit possibly in the next month Hx of substance use- in tx 2024
== END 2025-08-23 14:13 | disposition home or self-care (01) ==
LOC: HO.HMCFMS 13:20
PROVIDERS: PCP Student in an Organized Health Care Education/Training Program; Visit Provider Student in an Organized Health Care Education/Training Program
DX: J45.909 Unspecified asthma, uncomplicated (principal); F31.9 Bipolar disorder, unspecified; F11.11 Opioid abuse, in remission; E66.811 Obesity, class 1; Z68.32 Body mass index [BMI] 32.0-32.9, adult; F43.23 Adjustment disorder with mixed anxiety and depressed mood; B19.20 Unspecified viral hepatitis C without hepatic coma; Z72.0 Tobacco use; K30 Functional dyspepsia; F41.9 Anxiety disorder, unspecified; F32.A Depression, unspecified

== ENCOUNTER → 2025-08-23 13:19 | Outpatient (BNVA) | payer OTHER, SELFPAY | PROVIDERS: PCP Student in an Organized Health Care Education/Training Program; Visit Provider Student in an Organized Health Care Education/Training Program | DX: Z76.89 Persons encountering health services in other specified circumstances (principal); F43.23 Adjustment disorder with mixed anxiety and depressed mood; J45.909 Unspecified asthma, uncomplicated; E66.811 Obesity, class 1; Z68.32 Body mass index [BMI] 32.0-32.9, adult; B19.20 Unspecified viral hepatitis C without hepatic coma; F31.9 Bipolar disorder, unspecified; F11.11 Opioid abuse, in remission; K30 Functional dyspepsia; F41.9 Anxiety disorder, unspecified; K21.9 Gastro-esophageal reflux disease without esophagitis; Z72.0 Tobacco use; Z79.899 Other long term (current) drug therapy; Z13.31 Encounter for screening for depression; Z13.39 Encounter for screening examination for other mental health and behavioral disorders | CPT/HCPCS: 99202 ==

== ENCOUNTER 2025-09-07 10:39 | Outpatient (REF) | payer OTHER, SELFPAY ==
--- OUTSIDE RECORDS SUMMARY | 2025-09-07 12:37 | XMS_ITS | Patient Health Record ---
Author Organization [facility] Address [address] [place] [phone] Care Team Providers Care Lab Nurse Name Role Phone MARIA ANTONIA TEMPLETON Unavailable [phone] Sameera Granados Unavailable [phone] Allergies Allergen (clinical drug ingredient) Drug/Non Drug Allergy documented on EMR Reaction Allergy Type Onset Date Status fluoxetine PROzac Other: homocidal , aggressive Drug Allergy Active amoxicillin Amoxicillin hives Drug Allergy Act deven morphine Morphine hives Drug Allergy Active Penicillin hives Drug Allergy Active Results Component Value Reference Range Flag Notes Creatinine-[id number] Reviewed date:06/21/2025 11:26:34 AM Interpretation:Cr 0.53 low Performing Lab:[facility] [employer] [facility], Phone - [phone], Director - MDJodry Notes/Report: Creatinine 0.53 0.57-1.00 mg/dL L eGFR 128 >59 mL/min/1.73 hCG,Beta Subunit, Qnt-[id number] Reviewed date:06/17/2025 12:18:11 PM Interpretation:Negative Performing Lab:[facility], [address] [facility], [place], Phone - [phone], Director - MDJodry Notes/Report: hCG,Beta Subunit,Qnt,Serum <1 Female (Non-) 0 - 5 (Postmenopausal) 0 - 8 . Female () Weeks of Gestation 3 6 - 71 4 10 - 750 5 787 - 0598 6 308 - 36694 7 4962 -789152 8 23791 -273620 9 08449 -475546 10 76690 -722178 12 00732 -899713 14 87851 - 54280 15 17612 - 99964 16 8012 - 25279 17 8686 - 30012 18 6902 - 61307 Dominick ECLIA methodology CBC With Differential/Platel et-739350 Reviewed date:06/21/2025 11:26:23 AM Interpretation:Normal Performing Lab:[address], Phone - [phone], [facility] Notes/Report: WBC 7.3 3.4-10.8 x10E3/uL RBC [...] Immature Grans (Abs) 0.0 0.0-0.1 x10E3/uL HBsAg Screen-[id number] Reviewed date:06/21/2025 11:13:27 AM Interpretation:Negative Performing Lab:[address], Phone - [phone], Director - [facility] Notes/Report: HBsAg Screen Negative Negative Hepatitis B Surf Ab Quant-00 6530 Reviewed date:06/21/2025 11:26:17 AM Interpretation:Positive Performing Lab:[address], Phone - [phone], Director - [facility] Notes/Report: Hepatitis B Surf Ab Quant 6267.0 Immunity>10 mIU/mL Results confirmed on dilution. Status of Immunity Anti-HBs Level Inconsistent with Immunity 0.0 - 10.0 Consistent with Immunity >10.0 Hep B Core Ab, Tot-[id number] Reviewed date:06/21/2025 11:21:48 AM Interpretation:Positive Performing Lab:[facility], [address] [place] [address], Phone - [phone], Director - Leslye Notes/Report: Hep B Core Ab, Tot Positive Negative A Hep A Ab, Total-[id number] Reviewed date:06/21/2025 11:25:27 AM Interpretation:Positive Performing Lab:[facility], [address] [place] [address], Phone - [phone], Director - [facility] Notes/Report: Hep A Ab, Total Positive Negative A Comment: The HAV total antibody assay detects both IgG and IgM but does not differentiate between them. A negative result suggests susceptibility to infection. A positive result could be due to vaccination, previously resolved infection or active infection. Testing for HAV IgM should be performed if active HAV infection is suspected. [facility] offers profiles that will automatically reflex positive HAV total antibody results to IgM (e.g., panel #[id number] HAV Antibody w/ Rfx). PT and PTT-[id number] Reviewed date:06/21/2025 11:26:01 AM Interpretation:see details Performing Lab:[facility], [address] [place] [address], Phone - [phone], Director - NCDiandra Notes/Report: INR 1.0 0.9-1.2 Reference interval is [...] guidelines on Heparin monitoring, refer to the [facility] Directory of Services. T pallidum Screening Morris -[id number] Reviewed date:06/21/2025 11:25:48 AM Interpretation:Negative Performing Lab:[facility] [address]ing[address], [address], [place], Phone - [phone], Director - [facility] Notes/Report: T pallidum Antibodies Non Reactive Non Reactive HIV Ab/p24 Ag with Reflex-08 3935 Reviewed date:06/21/2025 11:25:38 AM Interpretation:Negative Performing Lab:[facility] [place], Charisse Medley, [address], [place], Phone - [phone], Director - [facility] Notes/Report: HIV Ab/p24 Ag Screen Non Reactive Non Reactive HIV-1/HIV-2 antibodies and HIV-1 p24 antigen were NOT detected. There is no laboratory evidence of HIV infection. HIV Negative HCV Antibody Morris(PCR/Gen o)-075853 Reviewed date:06/30/2025 09:13:44 AM Interpretation:Positive, see details Performing Lab:[facility] [place], Charisse [address]ley, [address], [place], Phone - [phone], Director - [facility] Notes/Report: Test(s) 387060-Uuirmwxlz C Genotype was developed and its performance characteristics determined by [facility]. It has not been cleared or approved by the Food and Drug Administration. Test(s) 454471-Kcsioypzj C Genotype was developed and its performance characteristics determined by [facility]. It has not been cleared or approved by the Food and Drug Administration. Test(s) 395338-Qcqmljxhr C Genotype was developed and its performance characteristics determined by [facility]. It has not been cleared or approved by the Food and Drug Administration. HCV Ab Reactive Non Reactive A Hepatitis C Quantitation [id number] HCV log10 5.723 Test Information: The juli ntitative range of this assay is 15 IU/mL to 100 million IU/mL. Interpretation: Positive HCV antibody screen with the presence of HCV RNA is consistent with active infection. HCV Genotype To be perfor med on this specimen. Hepatitis C Genotype 3 Hepatic Function Panel (7)-[id number] 83543 Reviewed date:06/21/2025 10:54:05 AM Interpretation:AST/ALT elevated [facility]forming Lab[facility], [address] [place] [address], [place], Phone - [phone], Director - NCDerik Notes/Report: Protein, Total 7.5 6.0-8.5 g/dL Albumin 4.5 4.0-5.0 g/dL Bilirubin, Total <0.2 0.0-1.2 mg/dL Bilirubin, Direct <0.08 0.00-0.40 mg/dL Alkaline Phosphatase 54 44-121 IU/L AST (SGOT) 80 0-40 IU/L H ALT (SGPT) 105 0-32 IU/L H HCV [employer]Sure-036415 Reviewed date:06/21/2025 10:52:27 AM Interpretation:No Fibrosis Performing Lab:[facility] [place], [facility] [address], [place], Phone - [phone], Director - Kasey Notes/Report: Fibrosis Score 0.06 [...] developed and its performance characteristics determined by [employer]. It has not been cleared or approved by the Food and Drug Administration. The FDA has determined that such clearance or approval is not necessary. . For questions regarding this report please contact customer service at . Creatinine-496422 Reviewed date:08/19/2025 09:05:43 AM Interpretation:Cr 0.7 Normal Performing Lab:[facility], Phone - [phone], Director - Dwight Notes/Report: Creatinine 0.70 0.57-1.00 mg/dL eGFR 119 >59 mL/min/1.73 Hemoglobin L4h-[id number] Reviewed date:08/19/2025 09:05:43 AM Interpretation:5% Normal Performing Lab:[facility] [address], Phone - [phone], Director - [place]ight Notes/Report: Hemoglobin A1c 5.0 4.8-5.6 % Diabetes: >6.4 Glycemic control for adults with diabetes: <7.0 . Prediabetes: 5.7 - 6.4 CBC With Differential/Platel et-[id number] Reviewed date:08/19/2025 09:05:43 AM Interpretation:Normal Performing Lab:[facility] [address], Phone - [phone], Director - Dwight Notes/Report: WBC 8.8 3.4-10.8 [...] x10E3/uL HCV Antibody RFX to Quant PC R-[id number] Reviewed date:08/23/2025 12:19:27 PM Interpretation:RNA not DETECTED Performing Lab:[facility] Dominguez, [address] [place] [address] Jasmyne, [address] [place] [address], Phone - [phone], Director - [facility] Notes/Report: HCV Ab Reactive Non Reactive A Hepatitis C Quantitation HCV Not Detected Test Information: The juli ntitative range of this assay is 15 IU/mL to 100 million IU/mL. Interpretation: Positive HCV antibody screen without the presence of HCV RNA is consistent with a resolved past infection or a false positive HCV antibody. Consider repeat testing after one month. Hepatic Function Panel (7)-[id number] Reviewed date:08/23/2025 12:46:57 PM Interpretation:Improved! Performing Lab:[facility]li Kelly, [address] [facility], [place], Phone - [phone], Director - NCDerik Notes/Report: Protein, Total 7.4 6.0-8.5 g/dL Albumin 4.5 4.0-5.0 g/dL Bilirubin, Total <0.2 0.0-1.2 mg/dL Bilirubin, Direct <0.08 0.00-0.40 mg/dL Alkaline Phosphatase 48 41-116 IU/L P lease note reference interval change AST (SGOT) 20 0-40 IU/L ALT (SGPT) 10 0-32 IU/L HBV DNA RealTime Deluna-[id number] 45 Reviewed date:07/14/2025 08:48:36 AM Interpretation:Not Detected Performing Lab:[facility], [address] [facility], [facility], Phone - [phone], Director - Abby Notes/Report: Hepatitis B Quantitation [...] supply Insurance would cover 1 month [facility], needs to have RX transferred, has [...] Active Gabapentin Active cloNIDine Active BD Disp Pierson 19G X 1 Miscellaneous as directed for [...] into sexual activities? Yes Currently: No drugs, correction, safety, other. No Gender Affirming Hormone Car [...] other (see notes) currently staying at a prison program Tobacco Use: Social Info Question Answer [...] Risk Notes Problem Viral hepatitis type C (06461990) Unspecified viral hepatitis C without hepatic coma (B19.20) Active confirmed Vital Signs Blood pressure diastolic 76 mm Hg 08/18/2025 Height 5'4 in 08/18/2025 Blood pressure systolic 112 mm Hg 08/18/2025 Weight 195 lbs 08/18/2025 BMI 33.47 kg/m2 08/18/2025 Encounters [facility]counter [facility] Date [facility] [id number] [facility] MARIA ANTONIA TEMPLETON Counseling, unspecif ied Z71.9 ; Unspecified viral hepatitis C without hepatic coma B19.20 ; Screening for other viral diseases Z11.59 ; 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 Z79.899 ; Encounter for screening for human immunodeficiency virus [HIV] Z11.4 and Encounter for test, result unknown Z32.00 [facility] [address] [place] [id number] 07/15/2025 MARIA ANTONIA TEMPLETON Unspecified viral hepatitis C without hepatic coma B19.[address] [facility] [id number] 07/30/2025 MARIA ANTONIA TEMPLETON 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 and Hormone replacement therapy Z79.890 [facility] [id number] 08/18/2025 MARIA ANTONIA TEMPLETON Counseling, unspecif ied Z71.9 ; Unspecified viral hepatitis C without hepatic coma B19.20 ; Hormone replacement therapy Z79.890 ; Encounter for screening for diabetes mellitus Z13.1 and 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 Clt meets the [facility] requirements for hormone therapy: >6 months of persistent gender dysphoria/incong ruence (see scanned in check list) Capacity to make a fully informed decision and to consent for treatment At least 18 years of age Significant medical or mental health concerns reasonably well controlled Clt feeling ready to go forward with [facility] start. Testosterone regimens reviewed. 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 (ICD-10 - Z79.899) Need [...] low risk of morbidity/morta lity 08/18/2025 Other detention (current) drug therapy (ICD-10 - Z79.899) Need [...] morbidity/morta lity 06/16/2025 Other Will schedule for [facility] start visit and fill out medical release for HRT records from [facility] Need 2 out of 3 Sections from A-C Section A) Problems (only need one from below) One acute or uncomplicated illness/injury Section B) Data (at least one of the following categories in this section) Category 1: (Choose 2 of the following): Order unique tests Section C) Risk Document low risk of morbidity/morta lity Plan Of Treatment Future Test Test Name Order Date AST (SGOT)-[id number] 09/10/2025 ALT (SGPT)-[id number] 09/10/2025 Hgb+Hct-793446 09/10/2025 Testosterone,All genders-[id number] 09/10/20 Next Appt Details Provider Name:MARIA ANTOINA TEMPLETON, 10:45:00 AM, [address] [place] [address], [phone], Provider Name:MARIA ANTONIA TEMPLETON, 09:30:00 AM, [address] [place] [address], [phone], Provider Name:MARIA ANTONIA TEMPLETON, 09:00:00 AM, [address] [facility], [place], [place], [phone], Insurance Providers Payer Name Payer Address Payer Phone Subscriber Number Group Number Insured Name Patient Relationship to Insured Coverage Start Date Coverage End Date [place] ATT CLAIMS [address] [place] [address] [phone] [id number] Sigrid Tilley Self - patient is the insured Medical (General) History Medical History History ICD Code Asthma, exercise induced Anxiety Sleep terrors, insomnia HCV, dx in 2023, tx started 06/2025 PTSD, panic attacks ADHD Smoking 1/2 PPD, plans to quit possibly in the next month Hx of substance use- in tx 2024
[2025-09-07 13:25] LABS: MANUAL DIFF FLAG NO
[2025-09-07 13:34] LABS: Hematocrit 39.3 % (37.0-47.0); Hemoglobin 12.9 g/dl (12.0-16.0); Imm Gran Abs Auto 0.04 X10*3/uL (0.00-0.03); Imm Gran Pct Auto 0.4 % (0.0-0.4); Lymphocytes Absolute Auto 2.8 X10*3/uL (1.2-4.9); Mean Corpuscular HGB Conc 32.8 g/dl (31.0-35.0); Mean Corpuscular Hemoglobin 29.7 pg (27.0-33.0); Mean Corpuscular Volume 90.3 fL (80.0-98.0); NRBC Abs Auto 0.000 X10*3/uL (0.0-0.012); NRBC Pct Auto 0.0 /100WBC (0.0-0.2); Platelet Count 277 X10*3/uL (160-400); Red Blood Count 4.35 X10*6/uL (4.20-5.50); White Blood Count 10.4 X10*3/uL (4.8-10.8)
[2025-09-07 13:46] LABS: Alanine Aminotransferase 25 U/L (0-31); Albumin Level 4.6 g/dL (3.5-5.0); Alkaline Phosphatase 46 U/L (39-117); Anion Gap 11 (12-20); Aspartate Amino Transferase 46 U/L (5-31); Blood Urea Nitrogen 12 mg/dL (9-16); Calcium 9.3 mg/dL (8.4-10.2); Carbon Dioxide 28 mmol/L (22-29); Chloride 106 mmol/L (96-108); Cholesterol 188 mg/dL (<200); Estimated Glomerular Filt Rate > 60; HDL Cholesterol 36 mg/dL (>40); Magnesium 1.9 mg/dL (1.6-2.6); Potassium 4.3 mmol/L (3.3-5.1); Sodium 141 mmol/L (135-145); Total Protein 7.5 g/dL (6.5-8.0); Triglycerides 190 mg/dL (<150)
[2025-09-07 19:08] LABS: Folate 8.4 ng/mL (> or = 4.0); Vitamin B12 257 pg/mL (200-900)
[2025-09-08 03:13] LABS: Syphilis Screen Nonreactive (Nonreactive)
[2025-09-08 03:23] LABS: HBS Num1 > 1000.00 mIU/mL (0-7.99); HBsAGNum1 0.37 S/CO (0.00-0.99); HIV Num 1 0.06 S/CO (0.00-0.99); Hepatitis B Surface Antigen Negative (Negative); ~Hepatitis B Surface Antibody REACTIVE (Nonreactive)
[2025-09-11 23:13] LABS: Chlamydia Trachomatis IgA <1:16 titer (<1:16)
[2025-09-12 05:59] LABS: VITAMIN D (1,25 OH) D3 46 pg/mL; Vit D (1,25-Dihydroxy) Total 46 pg/mL (18-72); Vitamin D (1,25 OH) D2 <8 pg/mL
== END 2025-09-07 10:40 | disposition home or self-care (01) ==
LOC: HO.HKASLDS 10:39
PROVIDERS: PCP Student in an Organized Health Care Education/Training Program; Visit Provider Student in an Organized Health Care Education/Training Program
DX: Z11.4 Encounter for screening for human immunodeficiency virus [HIV] (principal); Z11.59 Encounter for screening for other viral diseases; Z01.84 Encounter for antibody response examination; Z20.2 Contact with and (suspected) exposure to infections with a predominantly sexual mode of transmission; Z76.89 Persons encountering health services in other specified circumstances
CPT/HCPCS: 36415; 80053; 80061; 82607; 82652; 82746; 83036; 83735; 85025; 86631; 86632; 86706; 86780; 87340; 87389

== ENCOUNTER 2025-09-13 14:01 | Outpatient (AMB) | payer OTHER, SELFPAY ==
--- NOTE | 2025-09-13 14:02 | A.OFFPC_ITS ---
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 Accompanied by: Self / Same As Patient Allergies amoxicillin Allergy (Mild, Verified 09/13/25 14:04) Hives fluoxetine (From Prozac) Allergy (Mild, Verified 09/13/25 14:04) spicologycal morphine Allergy (Mild, Verified 09/13/25 14:04) Hives Penicillins Allergy (Mild, Verified 09/13/25 14:04) Hives Tobacco use date assessed: 09/13/25 Dental Screening Dental Screen Date: 09/13/25 Did you have a dental visit in the last 12 months?: Yes Did you have a dental problem in the last 6 months where you did not have access to dental care?: No Was dental information given to patient?: Patient has dentist HPI HPI Comments History of Present Illness Details Consent Patient was informed and verbally consented to the use of an ambient scribe for clinic note documentation during this visit. History of Present Illness The patient is a 30-year-old male presenting with concerns about hypertension and to review lab results. Hypertension: The patient reports intermittent high blood pressure readings, predominantly at home, with a recent high measurement of approximately 150 mmHg systolic. The patient is currently on propranolol, which was prescribed by a psychiatrist, but this seems to be primarily for controlling anxiety symptoms. At today's appointment, the blood pressure was measured at 108/65 mmHg. The patient has expressed difficulty finding a consistent routine for blood pressure monitoring. Hyperlipidemia: The patient is aware of elevated triglycerides at 190 mg/dL and LDL cholesterol at 114 mg/dL. They acknowledge that these levels may be exacerbated by dietary factors, including high juice consumption. There is no history of overt cardiovascular events. Surgical History: - No surgical procedures recorded prior to this visit. Medications: - Propranolol, prescribed by psychiatry, used for anxiety management and stability of hypertension readings. Social History: - Substance use: Former fentanyl use; in remission for 4 months. - Nicotine use: Active nicotine dependen ce noted, ongoing efforts towards cessation. - Dietary habits: Consumes significant q uantities of juice, contributing to caloric intake and possible hyperlipidemia. Diagnostic Results: - Labs: White blood cells, red blood coty ls, hemoglobin, hematocrit, and irma telets within normal limits. - Labs: Sodium, potassium, renal functio n, calcium, and magnesium within normal limits. - Labs: Elevated AST at 46 U/L (normal < 31 U/L). - Labs: Elevated triglycerides at 190 mg /dL (normal <150 mg/dL). - Labs: LDL cholesterol at 114 mg/dL (no rmal <100 mg/dL). - Labs: HDL cholesterol at 36 mg/dL (nor mal >40 mg/dL). - Labs: Vitamin B12 at 257 pg/mL (normal >200 pg/mL). - Labs: Vitamin D and folate within norm al limits. - Labs: Syphilis, hepatitis B, and HIV n egative. - Labs: Hepatitis B surface antibodies r eactive, indicating vaccination. Review of Systems - Cardiovascular: Reports intermittent e levated blood pressure readings at home. - Psychological: Denies current substanc e use, endorses ongoing management of anxiety and mood stabilization. 10-point ROS reviewed and negative excep t as noted in HPI Past Medical History - Gender dysphoria - Anxiety disorder - Bipolar disorder - Major depressive disorder with psychot ic features - Hepatitis C - Substance use disorder in remission - Gastroesophageal reflux disease (GERD) - Nicotine dependence - Hyperlipidemia - Vitamin B12 deficiency Health Maintenance - Hepatitis B vaccination confirmed by r eactive surface antibodies. - HIV and other sexually transmitted inf ection screens negative. Physical Exam General: Well-appearing, in no acute distress. Vital signs: Blood pressure at 108/65. HEENT: Normocephalic, atraumatic. PERRLA, EOMI. Conjunctiva clear, sclera anicteric. Oropharynx clear, mucous membranes moist. TMs intact bilaterally. Neck: Supple, no lymphadenopathy, no thyromegaly, no JVD or carotid bruits. Cardiovascular: RRR, normal S1/S2, no murmurs, rubs, or gallops. Peripheral pulses 2+ and symmetric. No edema. Respiratory: Lungs clear to auscultation bilaterally, no wheezes, rales, or rhonchi. Normal effort. Abdomen: Soft, non-tender, non-distended. Normoactive bowel sounds. No hepatosplenomegaly, no masses. MSK: Full range of motion, no joint swelling or deformity. Normal gait. Skin: Warm, dry, intact. No rashes, lesions, or pallor. Neuro: Alert and oriented x3. Cranial nerves II-XII intact. Strength 5/5 throughout. Sensation intact. Reflexes 2+ symmetric. Normal coordination and gait. Psych: Appropriate mood and affect. Normal judgment and insight. History of anxiety, bipolar disorder, and major depressive disorder with psychotic features. Plan 1. Gender Dysphoria - Continue support for gender transition as desired by the patient. 2. Anxiety Disorder - Monitor and address anxiety symptoms. Consider effectiveness of current propranolol use. 3. Bipolar Disorder - Maintain current psychiatric managemen t. 4. Major Depressive Disorder With Psycho tic Features - Continue with established treatment re gimen. 5. Hepatitis C - Proceed with current antiviral treatme nt. 6. Substance Use Disorder In Remission - Support ongoing abstinence and recover y efforts. 7. Gastroesophageal Reflux Disease (Gerd ) - Manage symptoms with appropriate lifes tyle modifications. 8. Nicotine Dependence - Encourage smoking cessation and discus s interventions. 9. Hyperlipidemia - Address with dietary modification and educate through dietitian referral. 10. Vitamin B12 Deficiency - Supplement and monitor B12 levels. Discussion Notes I engaged the patient in a discussion about their recent lab results, particularly focusing on hyperlipidemia and the contribution of dietary factors, like juice consumption. I recommended a referral to a labor and delivery registered nurse to provide expert guidance on dietary adjustments. We addressed blood pressure management strategies, emphasizing proper measurement techniques and regular logging for accurate tracking. The patient was instructed to monitor blood pressure in a controlled environment twice daily. We discussed the potential for propranolol to manage both anxiety and slight hypertension concerns. Tobacco cessation was encouraged, acknowledging the patient?s interest in reducing nicotine dependence. Routine follow-up was planned to reassess blood pressure and lipid levels post dietary intervention. Patient Instructions - Monitor blood pressure twice daily, us ing proper technique, and log readings. - Reduce juice intake, increase water co nsumption. - Continue vitamin B12 supplements as ad vised. - Follow-up with a labor and delivery registered nurse to improve cholesterol levels. - Continue efforts towards smoking cessa tion. - Return for follow-up to review blood p ressure and manage lab results. Medical Decision Making The management focuses on the chronic issues of hyperlipidemia and nicotine dependence, with acute attention given to hypertension concerns. The primary goal for hypertension is ensuring accurate readings and understanding propranolol's dual role. For hyperlipidemia, the focus is on dietary adjustments to prevent cardiovascular risk, complemented by a cold mill operator referral. Nicotine dependence interventions were discussed, emphasizing cessation. The patient?s psychological disorders and hepatitis C are managed part of ongoing psychiatric and medical care, respectively. The plan involves follow-up to reassess hypertension and lipid profile outcomes post dietary changes. Total time spent caring for the patient today was 30 minutes. This includes time spent before the visit reviewing the chart, time spent documenting, and time spent reviewing laboratory results, diagnostic imaging, medications, performing a medically necessary evaluation, counseling on diagnoses, care coordination, ordering appropriate tests, ordering appropriate medications. [facility] Family History Father No problems noted. Mother High blood pressure Social History Housing: Other (live in a program) Alcohol intake: current Alcohol intake frequency: does not drink Patient Tobacco Use Status: Current everyday Tobacco user Tobacco use type: Cigarette Cigarettes Per Day: 5 service: No Current occupational status: disabled Cognitive needs: No Hearing needs: No Vision needs: Yes (rx glasses) Questionnaire Thrive Questionnaire Date Thrive assessed: 09/13/25 I am a: Patient What is your living situation today?: I choose not to answer this question Within the past 12 months, did the food you bought not last and you didn't have the money to get more?: Never true Within the past 12 months, did you worry whether your food would run out before you got money to buy more?: Never true Do you have trouble paying for medicines?: Yes Do you have trouble getting transportation to medical appointments?: No Do you have trouble paying your heating and electricity bill?: No Do you have trouble taking care of your child, family member or friend?: No Do you have trouble with day-to-day activities such as bathing, preparing meals, shopping, managing finances, etc.?: Yes Are you currently unemployed and looking for a job?: Yes Are you interested in more education?: Yes Please select the resources that you would like help with: None THRIVE Score: 0 AUDIT C Alcohol Use Questionnaire (AUDIT-C) 1. How often do you have a drink containing alcohol?: Never Total Score: 0 OXANA-7 AMB Questionnaire OXANA-7 Date OXANA - 7 assessed: 08/23/25 Source: Developed by DrsHeavenly Chatman, Cathy Rene, Alexis Mejias and colleagues, with an educational tiny from [employer]. Physical exam (Primary Care) Vital Signs: Last Vital Signs Temp 97.4 F 09/13/25 14:03 Pulse 74 09/13/25 14:03 BP 108/65 09/13/25 14:03 Pulse Ox 97 09/13/25 14:03 Oxygen Delivery Method Room Air 09/13/25 14:03 BMI result Body Mass Index 33.8 Tobacco/Smoking Status: Tobacco use Status Tobacco use date assessed 09/13/25 09/13/25 14:13 Patient Tobacco Use Status Current everyday Tobacco 09/13/25 14:13 Tobacco use type Cigarette 09/13/25 14:13 Thrive Assessment: Date of Thrive Assessment Date Thrive assessed 09/13/25 09/13/25 14:13 Coding Level of Care Code Est Pt Level 4 (20701) Diagnoses Hepatitis C virus infection B19.20 Class 1 obesity E66.811 Nicotine use Z72.0 Bipolar I disorder F31.9 History of opioid abuse F11.11 Dyslipidemia E78.5 Vitamin B12 deficiency E53.8 Assessment & Plan Assessment & Plan (1) Hepatitis C virus infection: Code(s): B19.20 - Unspecified viral hepatitis C without hepatic coma (2) Class 1 obesity: Code(s): E66.811 - Obesity, class 1 (3) Nicotine use: Code(s): Z72.0 - Tobacco use (4) Bipolar I disorder: Code(s): F31.9 - Bipolar disorder, unspecified (5) History of opioid abuse: Code(s): F11.11 - Opioid abuse, in remission (6) Dyslipidemia: Code(s): E78.5 - Hyperlipidemia, unspecified (7) Vitamin B12 deficiency: Code(s): E53.8 - Deficiency of other specified B group vitamins Plan Orders: Referrals Nurse Navigator Referral E66.811 - Obesity, class 1, E78.5 - Hyperlipidemia, unspecified Medications: New cyanocobalamin (vitamin B-12) 1,000 mcg PO DAILY 90 tabs 0RF
[2025-09-13 14:03] VITALS: BP 108/65; PULSE 74; TEMP 36.3; O2SAT 97; BMI 33.8
== END 2025-09-13 14:30 | disposition home or self-care (01) ==
LOC: HO.HMCFMS 14:02
PROVIDERS: PCP Student in an Organized Health Care Education/Training Program; Visit Provider Student in an Organized Health Care Education/Training Program
DX: B19.20 Unspecified viral hepatitis C without hepatic coma (principal); E66.811 Obesity, class 1; Z72.0 Tobacco use; F31.9 Bipolar disorder, unspecified; F11.11 Opioid abuse, in remission; E78.5 Hyperlipidemia, unspecified; E53.8 Deficiency of other specified B group vitamins

== ENCOUNTER → 2025-09-13 14:01 | Outpatient (BNVA) | payer OTHER, SELFPAY | PROVIDERS: PCP Student in an Organized Health Care Education/Training Program; Visit Provider Student in an Organized Health Care Education/Training Program | DX: E53.8 Deficiency of other specified B group vitamins (principal); B19.20 Unspecified viral hepatitis C without hepatic coma; E66.811 Obesity, class 1; F31.9 Bipolar disorder, unspecified; F11.11 Opioid abuse, in remission; E78.5 Hyperlipidemia, unspecified; F17.210 Nicotine dependence, cigarettes, uncomplicated | CPT/HCPCS: 99212 ==

== ENCOUNTER 2025-09-28 16:16 | Outpatient (AMB) | payer OTHER, SELFPAY ==
--- OUTSIDE RECORDS SUMMARY | 2025-03-18 07:56 | XMS_ITS | Continuity of Care Document ---
Author Organization [facility] Address [address] [place] [address] Phone Care Team Providers Care Senior Marketing Data Analyst Name Role Phone Jett Garcia MD Unavailable Unavailable Allergies, Adverse Reactions, Alerts Substance Reaction Status Criticality amoxicillin Active No Information FLUOXETINE HCL Active No Informatio n morphine Active No Information Medications Medication Instructions Dosage Effective Dates (start - stop) Status Comments lamotrigine 25 mg tablet take 5 tablet by oral route 2 times every day 125 MG - Active paroxetine ER 25 mg tablet,extended release 24 hr take 1 tablet by oral route every day 25 MG - Active Seroquel 25 mg tablet take 1 tablet by o ral route 2 times every day 25 MG - Active bupropion HCl SR 150 mg tablet,12 hr sustained-release take 1 tablet by oral route 2 times every day 150 MG - Active Procedures Procedure Date Extensive Muscle Evaluation P O Visit Extensive Muscle Evaluation P O Visit P O Visit Muscle SG 2 Horiz Mus Muscle SG Scarring Muscle Adjustable Sutures P O Visit P O Visit Muscle SG 2 Horiz Mus Muscle SG 1 Vertical Extensive Muscle Evaluation Offic Outpt E And M Estab Low Mod Extensive Muscle Evaluation Ep Intermediate Exam Refraction Body And Frame Man Exam Advance Directives Directive Yes / No Effective Date File Name No Information Encounters Encounter Description Practice Location Reason(s) For Visit Diagnoses Date Provider Providers Copied on Encounter [facility], [address] [place], [place], [id number] , [place] tel: [phone] [facility] No Information 5 Radha Frausto. [address], [place], [place], [id number] , [place]. tel: [phone] [facility], [address] [place], [place], [id number] , [place] tel: [phone] [facility] Grn Vly XT (chief complaint) Alternating exotropiaAlternatin g esotropia 8 Radha Frausto. [address], [place], [place], [id number] , [place]. tel: [phone] Referring Provider: Jett Luna, [address], [place], [address] . tel: [phone] sulting Provider: Jett Luna, [address], [place], [address] . tel:[phone] [facility], [address], [place], [place], [id number] , [place] tel: [phone] [facility] Grn Vly post op (chief complaint) Alternating exotropia 8 Radha Frausto. [address], [place], [place], [id number] , [place]. tel: [phone] Referring Provider: Jett Luna, [address], [place], [address] . tel:[phone] sulting Provider: Jett Luna, [address], [place], [address] . tel:[phone] [facility], [address], [place], [place], [id number] , [place] tel: [phone] [facility] Post Op (chief complaint) Alternating exotropia 8 Radha Frausto. [address], [place], [place], [id number] , [place]. tel: [phone] Referring Provider: Gregory Ng CENTRAL CONTROL ROOM OPERATOR, [address] , [place], [address] . tel: [phone] sulting Provider: Jett Luna, [address], [place], [address] . tel:[phone] [facility], [address], [place], [place], [id number] , [place] tel: [phone] [place] [facility] [place] G Alternating exotropia 8 Radha Frausto. [address], [place], [place], [address] , [place]. tel: [phone] [facility], [address], [place], [place], [id number] , [place] tel: [phone] [facility] G No Information 8 Radha Frausto. [address], [place], [place], [id number] , [place]. tel: [phone] Referring Provider: Jett Luna, [address], [place], [address] . tel: [phone] sulting Provider: Jett Luna, [address], [place], [address] . tel:[phone] [facility], [address], [place], [place], [address] , [place] tel: [phone] [facility] Demetrio Hawkins ET (chief complaint) Alternating exotropia 8 Radha Frausto. [address], [place], [place], [id number] , [place]. tel: [phone] Referring Provider: Gregory Ng CENTRAL CONTROL ROOM OPERATOR, [address], [place], [address] . tel: [phone] sulting Provider: Jett Luna, [address], [place], [address] . tel:[phone] [facility], [address], [place], [place], [address] , [place] tel: [phone] [facility] Grn Vly PO muscle sx (chief complaint) Alternating esotropiaAlternatin g exotropia Apr-2 0 8 Radha Frausto. [address], [place], [place], [address] , [place]. tel: [phone] Referring Provider: Jett Luna, [address], [place], [address] . tel: [phone] sulting Provider: Jett Luna, [address], [place], [address] . tel:[phone] [facility], [address], [place], [id number] , [place] tel: [phone] [place] [facility] [place] G Alternating esotropia Feb-0 8 Radha Frausto. [address], [place], [place], [address] , [place]. tel: [phone] [facility] [place], [address], [place], [place], [address] , [place] tel: [phone] [place] [facility] [place] G No Information Feb-0 8 Radha Frausto. [address], [place], [place], [id number] , [place]. tel: [phone] Referring Provider: Gregory Ng APRN, [address], [place], [address] . tel: [phone] sulting Provider: Jett Lnua, [address], [place], [address] . tel:[phone] Offic Outpt E And M Estab Low Mod [facility] [place], [address], [place], [place], [address] , [place] tel: [phone] [facility] Grn Vly XT (chief complaint) Alternating exotropia Feb- 3 8 Radha Frausto. [address], [place], [place], [address] , [place]. tel: [phone] Referring Provider: Jett Luna, [address], [place], [address] . tel:[phone] [facility], [address], [place], [place], [address] , [place] tel: [phone] [facility] Grn Vly muscle evaluation (chief complaint) Alternating exotropia 6 8 Radha Frausto. [address], [place], [place], [address] , [place]. tel: [phone] Referring Provider: Gregory Ng APRN, [address], [place], [address] . tel:[phone] [facility], [address], [place], [place], [address] , [place] tel: [phone] [facility] [place] Decreased Vision (chief complaint) Unspecified disorder of refractionAlternati ng exotropia 0 8 Bo Lord. [address], [place], [place], [address] , [place]. tel: [phone] Referring Provider: Gregory Ng APRN, [address], [place], [address] . tel:[phone] Family History Family Member Type Diagnosis Age At Onset Grandfather Problem (finding) glaucoma Payers Payer name Insurance type Covered democrat ID Aram elias(s) Medicaid [facility] [id number] Social History Type Description Quantity Date Captured Comments Sex Female Smoking Status No Information Chief Complaint And Reason For Visit No Information Reason For Referral Reason For Referral No Information Plan Of Treatment Date Type Action Status Goal Tobacco cessation counseling completed Goal Tobacco cessation counseling completed Patient Education Dilated Retinal Exam: A bout This Test completed Patient Education Stopping Smoking: Care Instructions completed History Of Present Illness Encounter Date Complaint History Of Prese nt Illness XT 1 month return f or continued post op care. SP Left Medial Rectus Muscle Recession with Adjustable Suture(s), Left Lateral Rectus Advancement without Adjustable Suture(s), 06/02/18. Not having any diplopia but having a hard time focusing VA. Notes VA OU is blurry. post op 2 week return fo r continued post op care. SP Left Medial Rectus Muscle Recession with Adjustable Suture(s), Left Lateral Rectus Advancement without Adjustable Suture(s), 06/02/18. Has not had any diplopia but feels VA OS has become very blurry. Continues to use Maxitrol QD OS. Post Op 2 day PO Left Me dial Rectus Muscle Recession with Adjustable Suture(s) OS. Was unable to come in yesterday due to transportation. Has not used any gtts, has taken 800 mg of ibuprofen for pain. States her left eye is very painful. Declines diplopia, and does not note improvement in EOM. VA is a little blurry. ET 1 month return f or continued post op care. SP bilateral inferior oblique recession, left lateral rectus recession (8.0 mm), left medical rectus resection (6.0 mm), 03/03/18. Notes OS has been crossing in throughout the day and feels like VA OS has become more blurry. PO muscle sx Presents for 1 w k 5d PO muscle surgery OU. C/o dull throbbing pain OS. Has noticed OS crossing in. No double vision. Using Maxitrol gtts tid OU as directed. XT 1 month return f or pre op measurements and continued care of XT. Notes no improvement or changes with drifting. Would like to proceed with planed strabismus Sx on 03/03/18. muscle evaluation 5 week return for muscle evaluation. Reports Hx of OU crossing in since she was 6 months old. Notes she did alternating patching therapy from 6 months old to about 7 years old. No Hx of strabismus Sx. Notes now eyes drift out. Has been prescribed glasses in the past but has been without them x 2 years. Notes she does pencil push-ups daily x 15-20 minutes but that does not seem to be any help. Denies any diplopia. Decreased Vision New pt, visit i s for decreased vision OU. Last saw a doctor was 2 years ago and has not used glasses since then. VA OS>OD has been very blurry to read or watch tv, depth perception has been off. Was told to do eye exercises for her lazy eye in OS by her last doctor, and has been compliant. Functional Status Date Functional Assessmen t No Information Instructions Date Instruction Additional Infor mation Return for surgery Related to Al ternating exotropia Impression/Plan - Di scussed today's findings with patient. Explained residual XT s/p EOM surgery. Discussed additional EOM surgery to improve strabismus. Discussed risks, benefits, and alternatives of EOM surgery including but not limited to under correction, over correction, loss of vision, loss of the eye, anterior segment ischemia, diplopia, eyelid retraction or asymmetry, need for glasses with prism, and/or further surgery. The possible use of adjustable sutures in eye muscle surgery was explained. Patient understands and elects surgery. Consent signed today. Related to Alternating exotropia Follow up - Return for surgery R elated to Alternating exotropia Return 1 month with Jett Garcia M.D. for intermediate refract Related to Alternating exotropia Impression/Plan - Di scussed today's findings with patient. Residual XT s/p EOM surgery. Will monitor at this time. Return in 1 month to recheck motility and refraction. Use Maxitrol gtts QD x 2 days then stop. Use At's OU PRN for comfort. Related to Alternating exotropia Follow up - Return 1 month with Jett Garcia M.D. for intermediate refract Related to Alternating exotropia Return 2 weeks with Jett Garcia M.D. for intermediate no refract Related to Alternating exotropia Follow up - Return 2 weeks with Jett Garcia M.D. for intermediate no refract Related to Alternating exotropia Impression/Plan - Di scussed today's findings with patient. Doing well s/p EOM surgery with an adjustable suture. The left eye was anesthetized with Proparacaine. Lid was held open using lid speculum. Sliding noose was moved posterior using muscle hook moving muscle anterior, and patient was sat up to measure EOM. Measurements following 1st suture adjustment at distance without correction: 25 XT. Sliding noose was moved posterior for a 2nd time, and patient was sat up to re-measure EOM. Measurements following 2nd suture adjustment at distance without correction: 12 XT. Sliding noose was moved posterior for a 3rd time, and patient was sat up to re-measure EOM. Measurements following 3rd suture adjustment at distance without correction: 9 XT. Suture was tied down at new position. Lid speculum was removed, and erythromycin eye ointment was instilled into the eye.Advised patient to use Maxitrol gtts OS TID x3-4 days, may reduce to BID x 3 days, then QD x 3 days then stop. Return to recheck motility in 2 weeks. Related to Alternating exotropia Return for surgery Related to Al ternating exotropia Impression/Plan - Di scussed today's findings with patient. Explained secondary ET s/p EOM surgery. Will need additional EOM surgery to improve ET. Discussed risks, benefits, and alternatives of EOM surgery including but not limited to under correction, over correction, loss of vision, loss of the eye, anterior segment ischemia, diplopia, eyelid retraction or asymmetry, need for glasses with prism, and/or further surgery. The possible use of adjustable sutures in eye muscle surgery was explained. Patient understands and elects surgery. Consent signed today. Related to Alternating exotropia Follow up - Return for surgery R elated to Alternating exotropia Return 1 month with Jett Garcia M.D. for intermediate no refract Related to Alternating esotropia Impression/Plan - Di scussed secondary ET today. Recommend pt patch OD 3 hours a night. Explained if the eye continue to turn in, then will need to repeat EOM surgery. Will follow up in 1 month. Related to Alternating esotropia Follow up - Return 1 month with Jett Garcia M.D. for intermediate no refract Related to Alternating esotropia Impression/Plan - S/ p EOM x 10 days. Decreased drops BID OUx 3 days, then QD x 3 days, then d/c. Related to Alternating exotropia Return for surgery Related to Al ternating exotropia Impression/Plan - Di scussed today's findings with patient. Will proceed with EOM surgery as planned. Questions pertaining to surgery answered. Related to Alternating exotropia Follow up - Return for surgery R elated to Alternating exotropia Return for surgery Related to Al ternating exotropia Impression/Plan - Di scussed today's findings with patient. Explained XT and need for EOM surgery to improve strabismus. Discussed risks, benefits, and alternatives of EOM surgery including but not limited to under correction, over correction, loss of vision, loss of the eye, anterior segment ischemia, diplopia, eyelid retraction or asymmetry, need for glasses with prism, and/or further surgery. The possible use of adjustable sutures in eye muscle surgery was explained. Patient understands and elects surgery. Consent signed today. Related to Alternating exotropia Follow up - Return for surgery R elated to Alternating exotropia Return next availabl e with Jett Garcia M.D. for muscle eval Related to Alternating exotropia Impression/Plan Related to Alter nating exotropia Follow up - Return n ext available with Jett Garcia M.D. for muscle eval Related to Alternating exotropia Impression/Plan - Di scussed alternating exotropia with patient. Recommend patient see AJR for further evaluation and possible treatment. Related to Alternating exotropia Assessments Type Assessment Date No Information Patient Care Teams Name Effective Dates (start - stop) Status Members No Information
--- OUTSIDE RECORDS SUMMARY | 2025-09-24 05:15 | XMS_ITS ---
Author Organization [facility] [place] [address] Care Team Providers Care Heat Treat Inspector Name Role Phone MARIA ANTONIA TEMPLETON Unavailable [phone] REASON FOR VISIT GAH F/U Social History Sex Assigned At : Social History Observation Description Sex Assigned At Female Encounters Encounter Location Date Provider Diagnosis [facility] [id number] MARIA ANTONIA TEMPLETON Plan Of Treatment Next Appt Details Provider Name:MARIA ANTONIA TEMPLETON, 03:15:00 PM, [address] [place] [address], [phone], Progress Notes * Sigrid CROUCH NDOB: [birth year] (30 yo F)Acc No.[id number]:09/24/2025 Gender affirming hormones fo llow up visit Patient: Lee Sigrid bailey Provider: Wilfrido TEMPLETON :1995 A ge:30 Y S ex:Female(T) Date:09/24/2025 Address:[address] [place], [place] [id number] Subjective: * Chief Complaints: * G AH F/U * Electronic signature of EVANS TEMPLETON CNM on 09/28/2025 at 06:31 PM EST Sign off status: Pending * Provider: Wilfrido TEMPLETON Date: Generated for Ceceliai ng/Fahag/eTransmitting on: 11/28/2024 06:31 PM EST
--- NOTE | 2025-09-28 16:19 | A.OFFPC_ITS ---
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 Accompanied by: Self / Same As Patient Allergies amoxicillin Allergy (Mild, Verified 09/28/25 16:22) Hives fluoxetine (From Prozac) Allergy (Mild, Verified 09/28/25 16:22) spicologycal morphine Allergy (Mild, Verified 09/28/25 16:22) Hives Penicillins Allergy (Mild, Verified 09/28/25 16:22) Hives Medication List - Last Reconciled 09/28/25 by Bimal Ferguson MD acetaminophen 500 mg PO Q6H PRN buprenorphine ER (Sublocade) 300 mg subcut QMONTH buprenorphine-naloxone 8-2 mg (Suboxone) 1 film buccal QMONTH calcium carb-mag hydrox-simeth 800-270-80 mg/10 mL (Mylanta Tonight) mL PO clonidine HCl mg PO cyanocobalamin (vitamin B-12) 1,000 mcg PO DAILY gabapentin 800 mg PO TID guaifenesin 200 - 400 mg PO Q4H ibuprofen 400 - 600 mg PO Q6H lurasidone (Latuda) 60 mg PO DAILY magnesium hydroxide 4 mL PO DAILY melatonin 10 mg PO BEDTIME PRN mirtazapine 7.5 mg PO BEDTIME naloxone 4 mg/actuation (Narcan) 4 mg intranasal Q2M PRN nicotine 1 patch transdermal Q24H nicotine (polacrilex) 4 mg buccal Q8H PRN omeprazole 20 mg PO DAILY sofosbuvir-velpatasvir 400-100 mg (Epclusa) 1 tab PO DAILY testosterone cypionate (Depo-Testosterone) 60 mg IM Q2W Tobacco use date assessed: 09/13/25 Dental Screening Dental Screen Date: 09/13/25 HPI HPI Comments History of Present Illness Details History of Present Illness The patient is a 30-year-old female presenting for follow-up for blood pressure monitoring and medication management for gastroesophageal reflux disease and vitamin B12 deficiency. Hypertension: The patient's blood pressure is being monitored, and she provided recent home readings of 126, 130, 131, 119, 126, 141, 127, 122, 138, and 128 mmHg. Gastroesophageal reflux disease: The patient reports experiencing heartburn and has a history of acid reflux. She has been taking famotidine. Vitamin B12 deficiency: The patient reports a need for a prescription for vitamin B12. Hepatitis C: The patient is currently on treatment for Hepatitis C with Epclusa. Medications: - Suboxone/Sublocade - Calcium/Mylanta at night - Clonidine - Famotidine - Gabapentin - Guaifenesin - Ibuprofen - Latuda - Magnesium - Melatonin - Mirtazapine - Narcan - Nicotine patch - Nicotine gum - Epclusa for Hepatitis C - Testosterone Social History: - Substance Use: The patient is currentl y on Suboxone and has Narcan. - Support programs: The patient attends [facility] (ATR) classes daily. - Tobacco Use: Patient uses nicotine pat ch and gum. Diagnostic Results: - Home blood pressure monitoring: Recent readings include 126, 130, 131, 119, 126, 141, 127, 122, 138, and 128 mmHg. Past Medical History - Gastroesophageal reflux disease - Vitamin B12 deficiency - Opioid use disorder, on maintenance th erapy with Suboxone/Sublocade - Hepatitis C, on treatment with Epclusa Health Maintenance - Patient monitors blood pressure at [facility]. - Patient attends [facility] (AT R) classes daily. [facility] Medical History (Updated 09/28/25 @ 16:43 by Bimal Ferguson MD) GERD (gastroesophageal reflux disease) Family History Father No problems noted. Mother High blood pressure Social History Housing: Other (live in a program) Alcohol intake: current Alcohol intake frequency: does not drink Patient Tobacco Use Status: Current everyday Tobacco user Tobacco use type: Cigarette Cigarettes Per Day: 5 service: No Current occupational status: disabled Cognitive needs: No Hearing needs: No Vision needs: Yes (rx glasses) Questionnaire Thrive Questionnaire Date Thrive assessed: 08/23/25 I am a: Patient What is your living situation today?: I choose not to answer this question Within the past 12 months, did the food you bought not last and you didn't have the money to get more?: Never true Within the past 12 months, did you worry whether your food would run out before you got money to buy more?: Never true Do you have trouble paying for medicines?: Yes Do you have trouble getting transportation to medical appointments?: No Do you have trouble paying your heating and electricity bill?: No Do you have trouble taking care of your child, family member or friend?: No Do you have trouble with day-to-day activities such as bathing, preparing meals, shopping, managing finances, etc.?: Yes Are you currently unemployed and looking for a job?: Yes Are you interested in more education?: Yes Please select the resources that you would like help with: None THRIVE Score: 0 OXANA-7 AMB Questionnaire OXANA-7 Date OXANA - 7 assessed: 08/23/25 Source: Developed by Drs. Srini Chatman, Cathy Rene, Alexis Mejias and colleagues, with an educational tiny from [employer]. Review of Systems Narrative Review of Systems - Gastrointestinal: Reports heartburn and acid reflux. 10-point ROS reviewed and negative except as noted in HPI Physical exam (Primary Care) Vital Signs: Last Vital Signs Temp 98.1 F 09/28/25 16:23 Pulse 77 09/28/25 16:23 Resp 18 09/28/25 16:23 BP 110/57 L 09/28/25 16:23 Pulse Ox 97 09/28/25 16:23 Oxygen Delivery Method Room Air 09/28/25 16:23 BMI result Body Mass Index 34.6 Tobacco/Smoking Status: Tobacco use Status Tobacco use date assessed 09/13/25 09/28/25 16:25 Patient Tobacco Use Status Current everyday Tobacco 09/28/25 16:25 Tobacco use type Cigarette 09/28/25 16:25 Thrive Assessment: Date of Thrive Assessment Date Thrive assessed 08/23/25 09/28/25 16:25 Narrative Physical Exam General: Well-appearing, in no acute distress. Vital signs: Blood pressure readings varied, with values including 126, 130, 131, 119, 126, 141, 127, 122, 138, 128. HEENT: Normocephalic, atraumatic. PERRLA, EOMI. Conjunctiva clear, sclera anicteric. Oropharynx clear, mucous membranes moist. TMs intact bilaterally. Neck: Supple, no lymphadenopathy, no thyromegaly, no JVD or carotid bruits. Cardiovascular: RRR, normal S1/S2, no murmurs, rubs, or gallops. Peripheral pulses 2+ and symmetric. No edema. Respiratory: Lungs clear to auscultation bilaterally, no wheezes, rales, or rh onchi. Normal effort. Abdomen: Soft, non-tender, non-distended. Normoactive bowel sounds. No hepatosplenomegaly, no masses. MSK: Full range of motion, no joint swelling or deformity. Normal gait. Skin: Warm, dry, intact. No rashes, lesions, or pallor. Neuro: Alert and oriented x3. Cranial nerves II-XII intact. Strength 5/5 throughout. Sensation intact. Reflexes 2+ symmetric. Normal coordination and gait. Psych: Appropriate mood and affect. Normal judgment and insight. Coding Level of Care Code Est Pt Level 3 (79043) Diagnoses Cobalamin deficiency E53.8 Hepatitis C virus infection B19.20 Class 1 obesity E66.9 Nicotine use Z72.0 Bipolar I disorder F31.9 History of opioid abuse F11.11 GERD (gastroesophageal reflux disease) K21.9 Assessment & Plan Assessment & Plan (1) Cobalamin deficiency: Code(s): E53.8 - Deficiency of other specified B group vitamins (2) Hepatitis C virus infection: Code(s): B19.20 - Unspecified viral hepatitis C without hepatic coma (3) Class 1 obesity: Code(s): E66.9 - Obesity, unspecified (4) Nicotine use: Code(s): Z72.0 - Tobacco use (5) Bipolar I disorder: Code(s): F31.9 - Bipolar disorder, unspecified (6) History of opioid abuse: Code(s): F11.11 - Opioid abuse, in remission (7) GERD (gastroesophageal reflux disease): Code(s): K21.9 - Gastro-esophageal reflux disease without esophagitis Category: Medical Plan Consent Patient was informed and verbally consented to the use of an ambient scribe for clinic note documentation during this visit. Plan 1. Gastroesophageal Reflux Disease - Discontinue famotidine. - Start omeprazole 20 mg PO daily please take 4 hours after Epclusa intake to avoid lowering velpatasvir levels - A three-month supply will be provided. 2. Vitamin B12 Deficiency - Prescribe cyanocobalamin 1000 mcg PO daily. 3. Hypertension - Continue to monitor blood pressure at home, current readings are considered acceptable. 4. Hepatitis C - Continue Epclusa as prescribed. 5. Opioid Use Disorder - Continue Suboxone/Sublocade therapy. - Continue daily attendance at ATR classes. Discussion Notes I reviewed the patient's home blood pressure logs and am satisfied with the current level of control. We discussed her ongoing symptoms of acid reflux, and I have agreed to her request to switch from famotidine to a more potent medication. I will prescribe omeprazole 20 mg daily for GERD and also provide a new prescription for cyanocobalamin 1000 mcg for her vitamin B12 deficiency. The rest of her extensive medication regimen was reviewed and will be continued. Patient Instructions - You can stop taking famotidine. - Start taking omeprazole 20 mg by mouth once a day for your heartburn. - A new prescription for vitamin B12 (cyanocobalamin) 1000 mcg, to be taken once a day by mouth, will be sent to your pharmacy. - Continue to check your blood pressure at home. - Continue all your other current medications as prescribed. - Continue attending your daily recovery classes. Medical Decision Making The patient is a 30-year-old female here for a follow-up visit and medication management. Her home blood pressure logs were reviewed and show adequate control. She reports ongoing heartburn despite taking famotidine, so a switch to a more potent proton pump inhibitor, omeprazole 20 mg daily, is warranted for better symptom management of her GERD. A prescription for cyanocobalamin 1000 mcg was also refilled for her known vitamin B12 deficiency. All other chronic conditions are stable, and she will continue her current complex medication regimen, including treatment for Hepatitis C and opioid use disorder. Total time spent caring for the patient today was 20 minutes. This includes time spent before the visit reviewing the chart, time spent documenting, and time spent reviewing laboratory results, diagnostic imaging, medications, performing a medically necessary evaluation, counseling on diagnoses, care coordination Medications: New omeprazole 20 mg PO DAILY 90 caps 0RF Discontinued famotidine Discontinued Reason: Doctor's Order 20 mg PO DAILY 30 tabs 0RF
[2025-09-28 16:23] VITALS: BP 110/57; PULSE 77; RESP 18; TEMP 36.7; O2SAT 97; BMI 34.6
--- OUTSIDE RECORDS SUMMARY | 2025-09-28 18:32 | XMS_ITS | Patient Health Record ---
Author Organization [facility] Address [address] [place] [address] Care Team Providers Care Food Writer Name Role Phone MARIA ANTONIA TEMPLETON Unavailable [phone] Sameera Granados Unavailable [phone] Allergies Allergen (clinical drug ingredient) Drug/Non Drug Allergy documented on EMR Reaction Allergy Type Onset Date Status fluoxetine PROzac Other: homocidal , aggressive Drug Allergy Active amoxicillin Amoxicillin hives Drug Allergy Act deven morphine Morphine hives Drug Allergy Active Penicillin hives Drug Allergy Active Results Component Value Reference Range Flag Notes HBV DNA RealTime Deluna-[id number] 45 Reviewed date:07/14/2025 08:48:36 AM Interpretation:Not Detected Performing Lab:[facility], [address] [place] [address], Phone - [phone], Director - Abby Notes/Report: Hepatitis B Quantitation HBV DNA not detected HBV log10 TNP Unable to calculate result since non-numeric result obtained for component test. Test Information: The quantifiable range of this assay is 10 to 1,000,000,000 IU/mL and the limit of detection of the assay is 10 IU/mL. CBC With Differential/Platel et-[id number] Reviewed date:06/21/2025 11:26:23 AM Interpretation:Normal Performing Lab:[facility] [place], [address] [place] [address], [place], Phone - [phone], Director - Dwight Notes/Report: WBC 7.3 3.4-10.8 x10E3/uL RBC 4.30 [...] % Immature Grans (Abs) 0.0 0.0-0.1 x10E3/uL T pallidum Screening Thornton -[id number] Reviewed date:06/21/2025 11:25:48 AM Interpretation:Negative Performing Lab:[facility], [address], [place], Phone - [phone], Director - [facility] Notes/Report: T pallidum Antibodies Non Reactive Non Reactive PT and PTT-[id number] Reviewed date:06/21/2025 11:26:01 AM Interpretation:see details Performing Lab:[facility], [address] [facility], [place], Phone - [phone], Director - [facility] Notes/Report: INR 1.0 0.9-1.2 Reference interval is [...] guidelines on Heparin monitoring, refer to the [facility] Directory of Services. Hep A Ab, Total-[id number] Reviewed date:06/21/2025 11:25:27 AM Interpretation:Positive Performing Lab:[facility] [place], Phone - [phone], Director [facility] Notes/Report: Hep A Ab, Total Positive Negative A Comment: The HAV total antibody assay detects both IgG and IgM but does not differentiate between them. A negative result suggests susceptibility to infection. A positive result could be due to vaccination, previously resolved infection or active infection. Testing for HAV IgM should be performed if active HAV infection is suspected. [facility] offers profiles that will automatically reflex positive HAV total antibody results to IgM (e.g., panel #[id number] HAV Antibody w/ Rfx). Hep B Core Ab, Tot-[id number] Reviewed date:06/21/2025 11:21:48 AM Interpretation:Positive Performing Lab:[address], Phone - [phone], [facility] Notes/Report: Hep B Core Ab, Tot Positive Negative A Hepatitis B Surf Ab Quant-00 6530 Reviewed date:06/21/2025 11:26:17 AM Interpretation:Positive Performing Lab:[address], Phone - [phone], [facility] Notes/Report: Hepatitis B Surf Ab Quant 6267.0 Immunity>10 mIU/mL Results confirmed on dilution. Status of Immunity Anti-HBs Level Inconsistent with Immunity 0.0 - 10.0 Consistent with Immunity >10.0 HBsAg Screen-[id number] Reviewed date:06/21/2025 11:13:27 AM Interpretation:Negative Performing Lab:[address], Phone - [phone], [facility] Notes/Report: HBsAg Screen Negative Negative Creatinine-917347 Reviewed date:06/21/2025 11:26:34 AM Interpretation:Cr 0.53 low Performing Lab:[address], Phone - [phone], [facility] Notes/Report: Creatinine 0.53 0.57-1.00 mg/dL L eGFR 128 >59 mL/min/1.73 HIV Ab/p24 Ag with Reflex-08 3935 Reviewed date:06/21/2025 11:25:38 AM Interpretation:Negative Performing Lab:[facility] [place], [address], [address], [place], Phone - [phone], Director - [facility] Notes/Report: HIV Ab/p24 Ag Screen Non Reactive Non Reactive HIV-1/HIV-2 antibodies and HIV-1 p24 antigen were NOT detected. There is no laboratory evidence of HIV infection. HIV Negative HCV Antibody Thornton(PCR/Gen o)-[id number] Reviewed date:06/30/2025 09:13:44 AM Interpretation:Positive, see details Performing Lab:[facility] [place], [address], [address], [place], Phone - [phone], Director - [facility] Notes/Report: and Drug Administration. by [facility]. It has not been cleared or approved by the Food was developed and its performance characteristics determined Test(s) 431492-Cfmitkdyp C Genotype and Drug Administration. by [employer]. It has not been cleared or approved by the Food was developed and its performance characteristics determined Test(s) 398070-Vkaexnnrq C Genotype and Drug Administration. by [employer]. It has not been cleared or approved by the Food was Buru [employer] and its performance characteristics determined Test(s) 451676-Kxhcbtkjv C Genotype HCV Ab Reactive Non Reactive A Hepatitis C Quantitation 383176 HCV log10 5.723 Test Information: The juli ntitative range of this assay is 15 IU/mL to 100 million IU/mL. Interpretation: Positive HCV antibody screen with the presence of HCV RNA is consistent with active infection. HCV Genotype To be perfor med on this specimen. Hepatitis C Genotype 3 HCV [employer]-295191 Reviewed date:06/21/2025 10:52:27 AM Interpretation:No Fibrosis Performing Lab:[facility], [facility] [place], Phone - [phone], Director - Kasey Notes/Report: Fibrosis Score 0.06 [...] developed and its performance characteristics determined by [employer]. It has not been cleared or approved by the Food and Drug Administration. The FDA has determined that such clearance or approval is not necessary. . For questions regarding this report please contact customer service at . Hepatic Function Panel [phone] Reviewed date:06/21/2025 10:54:05 AM Interpretation:AST/ALT elevated Performing Lab:[facility] [place], [address] [facility], [place], Phone - [phone], Director - Dwight Notes/Report: Protein, Total 7.5 6.0-8.5 g/dL Albumin 4.5 4.0-5.0 g/dL Bilirubin, Total <0.2 0.0-1.2 mg/dL Bilirubin, Direct <0.08 0.00-0.40 mg/dL Alkaline Phosphatase 54 44-121 IU/L AST (SGOT) 80 0-40 IU/L H ALT (SGPT) 105 0-32 IU/L H Testosterone,All genders-540 005 Reviewed date:09/23/2025 01:49:00 PM Interpretation:760 Performing Lab:[facility], [address] [place] [address], Phone - [phone], Director - Jung Notes/Report: Testosterone, All genders 760 This test was developed and its performance characteristics determined by [facility]. It has not been cleared or approved by the Food and Drug Administration. Reference Range: Note: The order code chosen results in a complete set of reference ranges, including transgender specific reference intervals if applicable. Age Range Males Premature (26-28w) Day 4 59-125 Premature (31-35w) Day 4 37-198 Newborns 75-400 1 - 7m: Levels decrease rapidly the first week to 20 - 50, then increase to 60 - 400 between 20 - 60 days. Levels then decline to prepubertal range levels of <2.5 - 10 by seven months. Females Premature (26-28w) Day 4 5-16 Premature (31-35w) Day 4 5-22 Newborns 20-64 1 - 7m: Levels decrease during the first month to less than 10 and remain there until puberty. Prepubertal Males and Females <2.5-10 Hector Stage Age(years) Male 1 <9.8 2.5-10 2 9.8-14.5 18-150 3 10.7-15.4 100-320 4 11.8-16.2 200-620 5 12.8-17.3 350-970 Hector Stage Age(years) Female 1 <9.2 <2.5-10 2 9.2-13.7 7-28 3 10.0-14.4 15-35 4 10.7-15.6 13-32 5 11.8-18.6 20-38 Adult Males >18 years 264-916 This [facility] LC/MS-MS method is currently certified by the CDC Hormone Standardization Program (HoST). Adult male reference interval is based on a population of healthy nonobese males (BMI <30) between 19 and 39 years old. Jamar et.al. JCEM 2017,102;8249-2325 PMID: [id number]. Adult Females Premenopausal 10-55 Postmenopausal 7-40 Hgb+Hct-110712 Reviewed date:09/11/2025 09:57:39 AM Interpretation:13.3, 40.2 Normal Performing Lab:[facility], Phone - [phone], Director - [facility] Notes/Report: Hemoglobin 13.3 11.1-15.9 g/dL Hematocrit 40.2 34.0-46.6 % ALT (SGPT)-305691 Reviewed date:09/11/2025 09:58:27 AM Interpretation:14 Normal Performing Lab:[facility], Phone - [phone], [facility] Notes/Report: ALT (SGPT) 14 0-32 IU/L AST (SGOT)-605650 Reviewed date:09/11/2025 09:56:28 AM Interpretation:20 Normal Performing Lab:[facility], Phone - [phone], Director - [facility] Notes/Report: AST (SGOT) 20 0-40 IU/L Hepatic Function Panel (7)-3 93546 Reviewed date:08/23/2025 12:46:57 PM Interpretation:Improved! Performing Lab:[facility], Phone - [phone], [facility] Notes/Report: Protein, Total 7.4 6.0-8.5 g/dL Albumin 4.5 4.0-5.0 g/dL Bilirubin, Total <0.2 0.0-1.2 mg/dL Bilirubin, Direct <0.08 0.00-0.40 mg/dL Alkaline Phosphatase 48 41-116 IU/L P lease note reference interval change AST (SGOT) 20 0-40 IU/L ALT (SGPT) 10 0-32 IU/L HCV Antibody RFX to Quant PC R-[id number] Reviewed date:08/23/2025 12:19:27 PM Interpretation:RNA not DETECTED Performing Lab:[facility] [place], [address], [address], [place], Phone - [phone], Director - [facility] Notes/Report: HCV Ab Reactive Non Reactive A Hepatitis C Quantitation HCV Not Detected Test Information: The juli ntitative range of this assay is 15 IU/mL to 100 million IU/mL. Interpretation: Positive HCV antibody screen without the presence of HCV RNA is consistent with a resolved past infection or a false positive HCV antibody. Consider repeat testing after one month. CBC With Differential/Platel et-[id number] Reviewed date:08/19/2025 09:05:43 AM Interpretation:Normal Performing Lab:[facility] [place], [address] [facility], [place], Phone - [phone], Director - [facility] Notes/Report: WBC 8.8 3.4-10.8 x10E3/uL RBC 4.09 [...] Immature Grans (Abs) 0.0 0.0-0.1 x10E3/uL Hemoglobin T3i-[id number] Reviewed date:08/19/2025 09:05:43 AM Interpretation:5% Normal [facility]forming [facility], [address] [place] [address], Phone - [phone], Director - MDJodry Notes/Report: Hemoglobin A1c 5.0 4.8-5.6 % . Prediabetes: 5.7 - 6.4 Diabetes: >6.4 Glycemic control for adults with diabetes: <7.0 Creatinine-836327 Reviewed date:08/19/2025 09:05:43 AM Interpretation:Cr 0.7 Normal Performing Lab[facility], [address] [place] [address], [place], Phone - [phone], Director - MDJodry Notes/Report: Creatinine 0.70 0.57-1.00 mg/dL eGFR 119 >59 mL/min/1.73 hCG,Beta Subunit, Qnt-[id number] Reviewed date:06/17/2025 12:18:11 PM Interpretation:Negative Performing Lab:[facility] [place], [address] [place] [address], Phone - [phone], Director - MDJodry Notes/Report: hCG,Beta Subunit,Qnt,Serum <1 Female (Non-) 0 - 5 (Postmenopausal) 0 - 8 . Female () Weeks of Gestation 3 6 - 71 4 10 - 750 5 217 - 6138 6 158 - 30247 7 7856 -932322 8 36838 -835150 9 21205 -187373 18239 -569627 12 35344 -180904 14 13453 - 54206 15 04177 - 68913 16 3218 - 50930 17 2600 - 39436 18 3247 - 87883 Dominick ECLIA methodology Reason For Referral No Information Medications Medication SIG (Take, Route, Frequency, Duration) Notes Start Date End Date Status Latuda Active Alcohol Pads 70 % Pad as directed transdermal cleanse area prior to injections once weekly; Duration: 90 07/30/2025 Active Testosterone Cypionate 200 MG/ML Solution 0.3 mL Intramuscular 60 mg once weekly; Duration: 28 days 09/17/2025 Active Epclusa 400-100 MG Tablet 1 tablet Orally Once a day; Duration: 30 days Request refill prior to running out of supply Insurance would cover 1 month through [facility], needs to have RX transferred, has completed 1 month of medication and needs 2 additional months. Call with questions. 07/15/2025 Active Gabapentin Active Mirtazapine Active cloNIDine Active BD Disp [place] 19G X 1 Miscellaneous as directed for drawing up medication once weekly; Duration: 90 days 07/30/2025 Active BD Syringe Luer-Wilbert 1 ML Miscellaneous as directed Subcutaneous Once weekly; Duration: 90 days 07/30/2025 Active Needle (Disp) 23G X 1-1/2 Miscellaneous as directed IM Once weeky; Duration: 90 days 07/30/2025 Active Social History Sex Assigned [...] into sexual activities? Yes Currently: No drugs, skilled nursing, safety, other. No Gender Affirming Hormone Car [...] other (see notes) currently staying at a detention program Tobacco Use: Social Info Question Answer [...] Risk Notes Problem Viral hepatitis type C (61676865) Unspecified viral hepatitis C without hepatic coma (B19.20) Active confirmed Vital Signs Blood pressure diastolic 72 mm Hg 09/10/2025 Height 5'4 in 09/10/2025 Blood pressure systolic 98 mm Hg 09/10/2025 Weight 194 lbs 09/10/2025 BMI 33.3 kg/m2 09/10/2025 Encounters Encounter Location Date Provider Diagnosis [address] [id number] 06/16/2025 MARIA ANTONIA TEMPLETON Counseling, unspecif ied Z71.9 ; Unspecified viral hepatitis C without hepatic coma B19.20 ; Screening for other viral diseases Z11.59 ; Other superintendent terminal (current) drug therapy Z79.899 ; Encounter for screening for human immunodeficiency virus [HIV] Z11.4 and Encounter for test, result unknown Z32.00 [facility] [address] [place] [id number] 07/15/2025 MARIA ANTONIA TEMPLETON [facility] [id number] 07/30/[facility]25 MARIA ANTONIA TEMPLETON 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 and [facility]one [facility] [id number] 08/18/2025 MARIA ANTONIA TEMPLETON Counseling, unspecif ied Z71.9 ; Unspecified viral hepatitis C without hepatic coma B19.20 ; Hormone replacement therapy Z79.890 ; Encounter for screening for diabetes mellitus Z13.1 and Other retirement (current) drug therapy Z79.[address] [id number] 09/10/2025 MARIA ANTONIA TEMPLETON 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 [facility] [address] [id number] 06/21/2025 MARIA ANTONIA TEMPLETON [facility] [address] [id number] 07/30/2025 MARIA ANTONIA TEMPLETON [facility] [address] [id number] 08/16/2025 MARIA ANTONIA TEMPLETON [facility] [address] [place], [place] [id number] 08/16/2025 Sameera Granados Unspecified viral hepatitis C without hepatic coma B19.20 [facility] [address] [id number] 09/17/2025 MARIA ANTONIA TEMPLETON 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 [id number] 09/23/2025 MARIA ANTONIA TEMPLETON Assessments Encounter Date Diagnosis (ICD Code) Assessment [...] the patient Ordering medication/test /procedures Established Patient: 82664 10 Minutes 07/30/2025 Other gender identity disorders [...] handout to take home. Clt meets the ATH requirements for hormone therapy: >6 months of persistent gender dysphoria/incong ruence (see scanned in check list) Capacity to make a fully informed decision and to consent for treatment At least 18 years of age Significant medical or mental health concerns reasonably well controlled Clt feeling ready to go forward with [facility] start. Testosterone regimens reviewed. 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) 08/18/2025 Hormone replacement therapy (ICD-10 - Z79.890) [...] low risk of morbidity/morta lity 06/16/2025 Other retirement (current) drug therapy (ICD-10 - Z79.899) Need [...] low risk of morbidity/morta lity 08/18/2025 Other superintendent terminal (current) drug therapy (ICD-10 - Z79.899) Need [...] morbidity/morta lity 06/16/2025 Other Will schedule for [facility] start visit and fill out medical release for HRT records from [facility] Need 2 out of 3 Sections from A-C Section A) Problems (only need one from below) One acute or uncomplicated illness/injury Section B) Data (at least one of the following categories in this section) Category 1: (Choose 2 of the following): Order unique tests Section C) Risk Document low risk of morbidity/morta lity Plan Of Treatment Next Appt Details Provider Name:MARIA ANTONIA TEMPLETON, 03:15:00 PM, [address] [place] [address], [phone], Insurance Providers Payer Name Payer Address Payer Phone Subscriber Number Group Number Insured Name Patient Relationship to Insured Coverage Start Date Coverage End Date [place] [address] [place] [address] [phone] [id number] Sigrid Tilley Self - patient is the insured Medical (General) History Medical History History ICD Code Asthma, exercise induced Anxiety Sleep terrors, insomnia HCV, dx in 2023, tx started 06/2025 PTSD, panic attacks ADHD Smoking 1/2 PPD, plans to quit possibly in the next month Hx of substance use- in tx 2024
== END 2025-09-28 16:40 | disposition home or self-care (01) ==
LOC: HO.HMCFMS 16:17
PROVIDERS: PCP Student in an Organized Health Care Education/Training Program; Visit Provider Student in an Organized Health Care Education/Training Program
DX: E53.8 Deficiency of other specified B group vitamins (principal); B19.20 Unspecified viral hepatitis C without hepatic coma; E66.9 Obesity, unspecified; Z72.0 Tobacco use; F31.9 Bipolar disorder, unspecified; F11.11 Opioid abuse, in remission; K21.9 Gastro-esophageal reflux disease without esophagitis

== ENCOUNTER → 2025-09-28 16:16 | Outpatient (BNVA) | payer OTHER, SELFPAY | PROVIDERS: PCP Student in an Organized Health Care Education/Training Program; Visit Provider Student in an Organized Health Care Education/Training Program | DX: E53.8 Deficiency of other specified B group vitamins (principal); B19.20 Unspecified viral hepatitis C without hepatic coma; E66.9 Obesity, unspecified; F31.9 Bipolar disorder, unspecified; F11.11 Opioid abuse, in remission; K21.9 Gastro-esophageal reflux disease without esophagitis; F17.210 Nicotine dependence, cigarettes, uncomplicated; Z68.34 Body mass index [BMI] 34.0-34.9, adult | CPT/HCPCS: 99212 ==

== ENCOUNTER 2025-10-28 11:44 | Outpatient (AMB) | payer OTHER, SELFPAY ==
--- NOTE | 2025-10-28 11:46 | MHC.PC.OV ---
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 Multiple psychiatric diagnoses: The patient carries diagnoses of Bipolar I disorder, major depression with psychosis, ADHD, PTSD, anxiety disorder, and panic attack disorder. She is seeking a new psychiatrist because she is not satisfied with her current provider, stating they are not listening to her about her medications. She reports ongoing depression and states her current provider will not change her depression medication. The patient denied any suicidal ideation. Medications: - Unspecified psychiatric medications for depression. Past Medical History - Bipolar I disorder - Major depression with psychosis - ADHD - PTSD - Anxiety disorder - Panic attack disorder Health Maintenance [facility] Medical History (Updated 10/28/25 @ 11:58 by Bimal Ferguson MD) Panic attacks Anxiety and depression Insomnia PTSD (post-traumatic stress disorder) ADHD GERD (gastroesophageal reflux disease) Family History Father No problems noted. Mother High blood pressure Social History (Updated 10/28/25 @ 11:51 by Ruddy Sweeney CMA) Housing: Other (live in a program) Alcohol intake: current Alcohol intake frequency: does not drink Patient Tobacco Use Status: Current everyday Tobacco user Tobacco use type: Cigarette Cigarettes Per Day: 5 e-Cigarette/Vaping Use: Currently Using Use of substances other than those prescribed or required for medical reasons: No service: No Current occupational status: disabled Cognitive needs: No Hearing needs: No Vision needs: Yes (rx glasses) Questionnaire Thrive Questionnaire Date Thrive assessed: 08/23/25 I am a: Patient What is your living situation today?: I choose not to answer this question Within the past 12 months, did the food you bought not last and you didn't have the money to get more?: Never true Within the past 12 months, did you worry whether your food would run out before you got money to buy more?: Never true Do you have trouble paying for medicines?: Yes Do you have trouble getting transportation to medical appointments?: No Do you have trouble paying your heating and electricity bill?: No Do you have trouble taking care of your child, family member or friend?: No Do you have trouble with day-to-day activities such as bathing, preparing meals, shopping, managing finances, etc.?: Yes Are you currently unemployed and looking for a job?: Yes Are you interested in more education?: Yes Please select the resources that you would like help with: None THRIVE Score: 0 OXANA-7 AMB Questionnaire OXANA-7 Date OXANA - 7 assessed: 08/23/25 Source: Developed by Drs. Srini Chatman, Cathy Rene, Alexis Mejias and colleagues, with an educational tiny from [employer]. Review of Systems Narrative Review of Systems - Psychiatric: Reports feeling depressed. - Denies suicidal ideation. 10-point ROS reviewed and negative except as noted in HPI Physical exam (Primary Care) Vital Signs: Last Vital Signs Temp 97.4 F 10/28/25 11:51 Pulse 74 10/28/25 11:51 Resp 18 10/28/25 11:51 BP 93/45 L 10/28/25 11:51 Pulse Ox 98 10/28/25 11:51 Oxygen Delivery Method Room Air 10/28/25 11:51 BMI result Body Mass Index 34.4 Tobacco/Smoking Status: Tobacco use Status Tobacco use date assessed 09/13/25 10/28/25 11:53 Patient Tobacco Use Status Current everyday Tobacco 10/28/25 11:53 Tobacco use type Cigarette 10/28/25 11:53 e-Cigarette/Vaping Use Currently Using 10/28/25 11:53 Thrive Assessment: Date of Thrive Assessment Date Thrive assessed 08/23/25 10/28/25 11:53 Narrative Physical Exam General: Well-appearing, in no acute distress. Vital signs: Within normal limits. HEENT: Normocephalic, atraumatic. PERRLA, EOMI. Conjunctiva clear, sclera anicteric. Oropharynx clear, mucous membranes moist. TMs intact bilaterally. Neck: Supple, no lymphadenopathy, no thyromegaly, no JVD or carotid bruits. Cardiovascular: RRR, normal S1/S2, no murmurs, rubs, or gallops. Peripheral pulses 2+ and symmetric. No edema. Respiratory: Lungs clear to auscultation bilaterally, no wheezes, rales, or rhonchi. Normal effort. Abdomen: Soft, non-tender, non-distended. Normoactive bowel sounds. No hepatosplenomegaly, no masses. MSK: Full range of motion, no joint swelling or deformity. Normal gait. Skin: Warm, dry, intact. No rashes, lesions, or pallor. Neuro: Alert and oriented x3. Cranial nerves II-XII intact. Strength 5/5 throughout. Sensation intact. Reflexes 2+ symmetric. Normal coordination and gait. Psych: Appropriate mood and affect. Normal judgment and insight. Diagnosed with Bipolar 1, Major Depression with Psychosis, ADHD, PTSD, Anxiety Disorder, and Panic Attack Disorder. Not feeling suicidal. Coding Level of Care Code Est Pt Level 3 (31776) Diagnoses ADHD F90.9 PTSD (post-traumatic stress disorder) F43.10 Anxiety and depression F41.9; F32.A Panic attacks F41.0 Insomnia G47.00 Assessment & Plan Assessment & Plan (1) ADHD: Code(s): F90.9 - Attention-deficit hyperactivity disorder, unspecified type Category: Medical (2) PTSD (post-traumatic stress disorder): Code(s): F43.10 - Post-traumatic stress disorder, unspecified Category: Medical (3) Anxiety and depression: Code(s): F41.9 - Anxiety disorder, unspecified; F32.A - Depression, unspecified Category: Medical (4) Panic attacks: Code(s): F41.0 - Panic disorder [episodic paroxysmal anxiety] Category: Medical (5) Insomnia: Code(s): G47.00 - Insomnia, unspecified Category: Medical Plan Consent Patient was informed and verbally consented to the use of an ambient scribe for clinic note documentation during this visit. Plan 1. Request For Psychiatry Referral - Provided referral to [facility] in [place] as requested by the patient. - Provided an alternative referral to [facility]. - Gave the patient the contact number for [facility], . - Informed the patient that [facility] offers telehealth appointments. Discussion Notes I discussed the patient's request for a new psychiatry referral due to dissatisfaction with her current care. She feels her concerns about persistent depression are not being addressed and her medications are not being adjusted. I assessed for safety and she denied any suicidal thoughts. I provided a paper referral to her requested facility, [facility]. I also offered an alternative referral to [facility], noting they may offer faster appointments and provide services via telehealth. I supplied her with their contact number to facilitate scheduling. Patient Instructions - You have been given a paper referral for [facility]. - For another option, you can call [facility] at [phone]. - When you call, let them know your doctor referred you. - This group also offers virtual appointments over Zoom. Medical Decision Making The patient is a 30-year-old female with a complex psychiatric history, including Bipolar I disorder, major depression with psychosis, ADHD, PTSD, anxiety, and panic disorder, who presented to request a referral for a new psychiatrist. She expressed dissatisfaction with her current provider, citing a lack of response to her ongoing depressive symptoms and a refusal to adjust her medications. Safety was assessed, and the patient denied any suicidal ideation. The primary goal of this visit was to ensure continuity of psychiatric care and address the patient's request. A referral was provided to [facility] as requested. An additional referral to [facility] was also given to provide the patient with another option that might offer faster access to care and telehealth services. Total Time Statement 20 min Total time spent caring for the patient today includes pre-visit chart review, documentation, review of laboratory and diagnostic imaging results, medication reconciliation, medically necessary evaluation, counseling on diagnoses, care coordination, ordering appropriate tests and medications, review of tests performed by other providers, reporting test results to the patient, and communication with other healthcare providers. Orders: Referrals Psychiatry Referral F31.9 - Bipolar disorder, unspecified, F32.A - Depression, unspecified, F41.0 - Panic disorder [episodic paroxysmal anxiety], F41.9 - Anxiety disorder, unspecified, F43.10 - Post-traumatic stress disorder, unspecified, F90.9 - Attention-deficit hyperactivity disorder, unspecified type, G47.00 - Insomnia, unspecified
[2025-10-28 11:51] VITALS: BP 93/45; PULSE 74; RESP 18; TEMP 36.3; O2SAT 98; BMI 34.4
== END 2025-10-28 12:01 | disposition home or self-care (01) ==
LOC: HO.HMCFMS 11:45
PROVIDERS: PCP Student in an Organized Health Care Education/Training Program; Visit Provider Student in an Organized Health Care Education/Training Program
DX: F90.9 Attention-deficit hyperactivity disorder, unspecified type (principal); F43.10 Post-traumatic stress disorder, unspecified; F41.9 Anxiety disorder, unspecified; F32.A Depression, unspecified; F41.0 Panic disorder [episodic paroxysmal anxiety]; G47.00 Insomnia, unspecified

== ENCOUNTER → 2025-10-28 11:44 | Outpatient (BNVA) | payer OTHER, SELFPAY | PROVIDERS: PCP Student in an Organized Health Care Education/Training Program; Visit Provider Student in an Organized Health Care Education/Training Program | DX: F90.9 Attention-deficit hyperactivity disorder, unspecified type (principal); F43.10 Post-traumatic stress disorder, unspecified; F41.9 Anxiety disorder, unspecified; F32.A Depression, unspecified; F41.0 Panic disorder [episodic paroxysmal anxiety]; G47.00 Insomnia, unspecified; F17.200 Nicotine dependence, unspecified, uncomplicated; Z71.6 Tobacco abuse counseling | CPT/HCPCS: 99212 ==